=== PATIENT | female | born 1940 | race Caucasian/White ===

== ENCOUNTER 2022-01-15 17:00 | Outpatient (CLI) | payer MEDICARE, OTHER, SELFPAY ==
[2022-01-15 10:32] LABS: Glucose* 99 mg/dL (60-115)
== END 2022-01-15 17:01 | disposition home or self-care (01) ==
PROVIDERS: PCP Internal Medicine; Visit Provider Internal Medicine
DX: E03.9 Hypothyroidism, unspecified (principal); Z13.1 Encounter for screening for diabetes mellitus
CPT/HCPCS: 82947; 84443

== ENCOUNTER 2022-05-11 10:04 | Outpatient (CLI) | payer MEDICARE, OTHER, SELFPAY ==
--- NOTE | 2022-05-11 10:15 | CRLHL7_ITS ---
For Patients: As a result of the Century Cures Act, medical imaging exams and procedure reports are released immediately into your electronic medical record. You may view this report before your referring provider. If you have questions, please contact your health care provider. BILATERAL SCREENING MAMMOGRAM WITH COMPUTER-AIDED DETECTION TECHNIQUE: CC and MLO views were obtained. These mammographic images have been obtained using full-field digital technique. These mammographic images were interpreted with the benefit of computer-aided detection. COMPARISON FILM: 03/03/21, 10/24/17, 10/15/16. FINDINGS: The breasts are heterogeneously dense, which may obscure small masses IMPRESSION: There is no radiographic evidence for malignancy. ASSESSMENT: BI-RADS Category 1: Negative RECOMMENDATION: Routine screening mammogram in 1 year. A lay language report of this examination will be provided to the patient. Arnie Nguyen M.D. Diagnostic Radiologist [email or web address] VON/antonia Transcribed: 2:40 p.kiki knight/Dictated by: Arnie Nguyen MD @ 05/11/2022 10:57:00 AM (Electronically Signed)
== END 2022-05-11 10:05 | disposition home or self-care (01) ==
LOC: MAMMO 10:05
PROVIDERS: PCP Internal Medicine; Visit Provider Internal Medicine
DX: Z12.31 Encounter for screening mammogram for malignant neoplasm of breast (principal); R92.2 Inconclusive mammogram
CPT/HCPCS: 77063; 77067

== ENCOUNTER 2023-05-17 11:01 | Outpatient (CLI) | payer MEDICARE, OTHER, SELFPAY ==
--- OUTSIDE RECORDS SUMMARY | 2023-05-17 11:10 | XMS_ITS | Clinical Summary ---
Author Name Unknown Organization [facility] Address [place], [place] [address] Care Team Providers Care Service Engine Repairer Name Role Phone Sharon Kendrick MD Primary Care Provider [phone] Erendira Feldman AuD Unavailable [phone] Allergies No known active allergies Active Problems Problem Noted Date Diagnosed Date Sensorineural hearing loss, bilateral 10/10/2013 Social History Tobacco Use Types Packs/Day Years Used Date Smoking Tobacco: Never Assessed Sex and Gender Information Value Date Recorded Sex Assigned at Not on file Gender Identity Not on file Sexual Orientation Not on file Last Filed Vital Signs Vital Sign Reading Time Taken Comments Blood Pressure 113/73 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 Pulse 72 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 Temperature - - Respiratory Rate - - Oxygen Saturation - - Inhaled Oxygen Concentration - - Weight - - Height - - Body Mass Index - - Plan of Treatment Health Maintenance Due Date Last Done Comments COVID-19 vaccine series (#1) 04/19/1942 Tdap 1952 Depression screening for age 12+ 1953 BMI (ht and wt on same day) for age 18+ 10/18/1959 Tetanus booster 1961 Zoster (shingles) series for age 50+ (1 of 2) 10/17/18 92 DEXA/DXA scan for age 65+ 2006 Medicare Wellness for age 65+ 2006 Pneumococcal series for age 65+ (1 of 1 - PCV) 007 Influenza for age 65+ 11/26/2022 Care Teams Service Engine Repairer Relationship Specialty Start Date End Date Sharon Kendrick MD [address] [place] [address] PCP - General Internal Medicine 04/25/12 Erendira Feldman AuD [address] [place] [address] Audiology 04/25/12
== END 2023-05-17 11:02 | disposition home or self-care (01) ==
PROVIDERS: PCP Internal Medicine; Visit Provider Internal Medicine
DX: E03.9 Hypothyroidism, unspecified (principal); M85.80 Other specified disorders of bone density and structure, unspecified site; R53.81 Other malaise; Z13.228 Encounter for screening for other metabolic disorders; Z13.21 Encounter for screening for nutritional disorder
CPT/HCPCS: 80053; 82306; 82607; 83735; 84443

== ENCOUNTER 2023-08-08 11:15 | Outpatient (CLI) | payer MEDICARE, OTHER, SELFPAY ==
--- OUTSIDE RECORDS SUMMARY | 2023-08-08 11:17 | XMS_ITS | Clinical Summary ---
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 Pulse 72 04/24/2013 2:11 PM SHOWER ROOM ATTENDANT Temperature - - Respiratory Rate - - Oxygen Saturation - - Inhaled Oxygen Concentration - - Weight - - Height - - Body Mass Index - - Plan of Treatment Health Maintenance Due Date Last Done Comments Tdap 1952 Depression screening for age 12+ 1953 BMI (ht and wt on same day) for age 18+ 10/18/1959 Tetanus booster 1961 Zoster (shingles) series for age 50+ (1 of 2) 10/17/18 92 DEXA/DXA scan for age 65+ 2006 Medicare Wellness for age 65+ 2006 Pneumococcal series for age 65+ (1 of 1 - PCV) 007 COVID-19 vaccine series ( - 2022-24 season) 3 Influenza for age 65+ 11/27/2023 Care Teams Hot Dip Galvanizer Relationship Specialty Start Date End Date Sharon Kendrick MD [address] [place] [address] PCP - General Internal Medicine 04/25/12 Erendira Feldman AuD [address] [place] [address] Audiology 04/25/12
--- NOTE | 2023-08-08 11:30 | MM_ITS ---
Patient: ESTER KABA Facility:?[facility] Patient ID:?[id number] Site Patient ID:?[id number] Site :?[id number] Study:?XRay-Breast Bilateral 3D W/CAD-08/08/2023 11:37:39 AM Ordering Physician:Sharon Stoner Final Report: BILATERAL SCREENING MAMMOGRAM WITH COMPUTER-AIDED DETECTION AND TOMOSYNTHESIS TECHNIQUE: CC and MLO views were obtained. These mammographic images have been obtained using full-field digital technique. These mammographic images were interpreted with the benefit of computer-aided detection. Breast tomosynthesis was used in this interpretation. COMPARISON FILM: 05/11/22, 03/03/21, 10/24/17. FINDINGS: The breasts are heterogeneously dense, which may obscure small masses. IMPRESSION: There is no radiographic evidence for malignancy. ASSESSMENT: BI-RADS Category 1: Negative RECOMMENDATION: Routine screening mammogram in 1 year. A lay language report of this examination will be provided to the patient. JOSHUA DOLL M.D. Diagnostic Radiologist [email or web address] VON/mercy D& Transcribed: 1:[address]/Dictated by: Joshua Doll MD @ 08/09/2023 11:37:00 AM Signed by:Gillian Doll MD @08/09/2023 1:27:26 PM (Electronic Signature)
== END 2023-08-08 11:16 | disposition home or self-care (01) ==
LOC: MAMMO 11:16
PROVIDERS: PCP Internal Medicine; Visit Provider Internal Medicine
DX: Z12.31 Encounter for screening mammogram for malignant neoplasm of breast (principal); R92.2 Inconclusive mammogram
CPT/HCPCS: 77063; 77067

== ENCOUNTER 2023-10-07 09:00 | Outpatient (RCR) | payer MEDICARE, OTHER, SELFPAY ==
--- NOTE | 2023-06-29 09:35 | PT.OPEX ---
PT [facility] Outpatient Eval PT [facility] Outpatient Eval Start: 06/14/23 10:55 Freq: Status: Active Protocol: Document 06/29/23 07:59 MARY JO (Rec: 06/29/23 08:02 MARY JO [id number]) E-signed By Nicole Hall PT Physical Therapy Outpatient Evaluation Insurance Information Recert Due Date 09/27/23 Insurance Name Medicare B Insurance Information/Comments [facility] Diagnosis Urinary incontinence LE weakness Other symptoms/signs involving musculoskeletal system Treating Diagnosis Lack of muscle coordination weakness Referring MD Dr Aroldo Doyle presents with diagnosis of symptoms of UI and LE weakness. Pt is currently in the process of moving from her house into an apartment. Her main concern today is her UI symptoms vs her LE weakness. Her UI symptoms started bout 4 -5 years ago with some mild leakage when she coughed. Pt did have persistent cough at that time that since has been treated and has improved. She continues to have issues with UI that had gradually worsened over the years. Currently her leaking will occur multiple times a day. The leaking is usually associated with coughing/ sneezing and lifting. Usually the amount leaked in a spurt, but has had an episode, over the past year, of a large leak . Her bowel function overall is fair. Pt is not currently sexual active and is content with her current status. Goal for therapy includes ability to control her bladder better. Date of Last Physician Visit 05/17/23 Current Work Status Retired Precautions Treatment Precautions/Contraindications depression HTN skin CA hypothyroidism osteopenia persistent cough - improving. Is on an inhaler Surgical hx: L ankle ORIF B oophorectomy approx 30 yrs ago Assessment Assessment/Impression 82 yo client presents with concerns due to urinary incontinence. With further evaluation of pt's status, pt at times does have a slow urinary stream and has trouble with completely emptying her bladder. At times, will need to double void to feel completely empties. She typically will urinate rough every hour to try to help reduce episodes of leaking. Does frequently toilet just in case, if leaving the house or when returning home, to reduce risk of UI. Someday her frequency can be less and she is able to wait closer to 2 hours between voiding. Pt drinks an appropriate amount of water (48 oz), and up to 2 glasses of herbal tea in a day . Will also drink 16-24 oz of caffeinated tea/day. Did not have time to complete assessment of her PFM at this time. Will complete the assessment at her next session . Pt is appropriate for further skilled PT services including use of therapeutic exercise, therapeutic activities, neuromuscular re- ed, manual therapy, and self cares for symptom reduction. Plan of Care Rehabilitation Potential Good Physical Therapy Goals Short term goals to be achieved in 4 weeks 1. Able to state 4 of 4 urge suppression/bladder retraining strategies 2. Able to report voiding intervals of 1X every 2-3 hours, 50% of the time. 3. Pt will demonstrate use of functional PFM contraction/ precontraction to reduce UI during coughing, sneezing, and with lifting 4. 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 1. Independent with self-care program to allow for reduction in her UI symptoms 2. Will report an 80% reduction in her UI symptoms as seen with ability to stay dry 5 out of 7 days. 3. Pt will report no leaking with coughing, sneezing, 3 out of 4 trials. 4. Pt will be able to demonstrate proper mechanics with lifting, including ability to manage IAP, to reduce DANIEL symptoms. 5. Pt able to maintain a 2-3 hour voiding schedule 75% of the time or greater for improvement in her bladder function. Coordination/Communication With Referral Source Treatment Plan/Direct Interventions Joint Mobilization,Manual Therapy,Neuromuscular Re-ed, Self-Care/Home Management, Therapeutic Activities, Therapeutic Exercises Frequency/Duration 1 time a week for up to 12 viists Patient Will Be Discharged From Therapy Completion of LTG(s),Skills Plateau,Independent w/HEP, Independently Progressing Evaluation Billing Untimed Code Treatment Minutes 35 Complexity Moderate Certification Information Initial Certification Date 06/29/23 Ending Certification Date 09/27/23 Provider Signature Shows Agreement With POC & Medical Necessity Physician Signature & Date Requested Please Sign/Date Here Physician Comment/Change : Physician NPI Number #
--- NOTE | 2023-10-07 09:51 | PT.OPDNX ---
PT [facility] Outpatient Daily Note PT [facility] Outpatient Daily Note Start: 06/14/23 10:55 Freq: Status: Active Protocol: Document 10/07/23 09:06 MARY JO (Rec: 10/07/23 09:50 MARY JO [id number]) E-signed By Nicole Hall, PT PT OP Daily Progress Note Visit Information Note Type Daily Note Visit Number 6 Insurance Information Recert Due Date 01/05/24 Insurance Name Medicare B Insurance Information/Comments [place] Medical Diagnosis Urinary incontinence LE weakness Other symptoms/signs involving musculoskeletal system Treating Diagnosis Lack of muscle coordination weakness Referring MD Dr Kendrick Subjective Subjective Pt reports she is doing really well. Happy with her progress. Had a stressful week - spouse ended up hospitalized for a staph infection. Pt reports only having 1 episode of leaking with a sneeze in the last week . I don't wear of pads anymore. Is able to wait 2-3 hours between voiding. Only concern is of a double void first thing in the am - they are about 10 mins apart. Precautions Treatment Precautions/Contraindications depression HTN skin CA hypothyroidism osteopenia persistent cough - improving. Is on an inhaler Surgical hx: L ankle ORIF B oophorectomy approx 30 yrs ago Objective Patient Instructed in Risks/Benefits Yes Therapeutic Exercise Therapeutic Exercise Minutes (minutes) 20 Therapeutic Exercise: To Restore Did review current HEP with pt Functional Status and review of rationale for exs. Did modify her PF PT to a seated position to aid in improving her compliance. Pt did initially need cueing for proper firing of lower abdominals. Review of Kegels -reps, positions, proper contractions. Self Care Management Training Self-Care Activity Minutes (minutes) 15 Self Care Management Training Again review of cough/sneeze and trying to add in a pre contraction to reduce DANIEL symptoms. Also worked on ways to reduce her double Void in the am - will try to take some extra time relaxing on the toilet prior to standing/wiping. Will change position - lean forward, stand up, etc to see if any more urine comes out. Also instructed her to make sure there is not a trigger that produces her 2nd urge in the am (ie brushing teeth, running water) to avoid any urge UI symptoms. Treatment Minutes Timed Code Treatment Minutes 35 Total Treatment Time 35 Billing Units Self-Care Activity Units 1 Therapeutic Exercise Units 1 Assessment/Impression Assessment/Impression Pt overall is doing really well with symptoms despite her stressful week. Has bene going without pads and only had 1 episode of leaking with a sneeze. Has been doing her Kegels as instructed but is struggling with her stretching and core. Did review with pt importance of her HEP and did modify her HEP to help improve compliance. Pt should be able to self manage symptoms with her current HEP. She has made good progress toward her goals. Will place her chart on hold. Plan of Care Physical Therapy Goals Short term goals to be achieved in 4 weeks 1. Able to state 4 of 4 urge suppression/bladder retraining strategies MET 2. Able to report voiding intervals of 1X every 2-3 hours, 50% of the time. MET 3. Pt will demonstrate use of functional PFM contraction/ precontraction to reduce UI during coughing, sneezing, and with lifting MET 4. Will demonstrate an increase in PFM endurance to 8 sec holds X 10 reps, or greater, for ability to reduce UI symptoms during the day MET senior care goals to be achieved in 12 weeks. 1. Independent with self-care program to allow for reduction in her UI symptoms MET 2. Will report an 80% reduction in her UI symptoms as seen with ability to stay dry 5 out of 7 days. MET 3. Pt will report no leaking with coughing, sneezing, 3 out of 4 trials. MET 4. Pt will be able to demonstrate proper mechanics with lifting, including ability to manage IAP, to reduce DANIEL symptoms. MET 5. Pt able to maintain a 2-3 hour voiding schedule 75% of the time or greater for improvement in her bladder function. MET Daily Plan of Care Change POC; See Comments, Discharge Daily Plan of Care Comments on hold If pt fails to contact PT in 6 weeks, her chart will be DC/ Recertification Information Initial Certification Date 06/29/23 Recertification Start Date 10/07/23 Recertification Due Date 01/05/24 Reasons to Continue Skilled Therapy Pt returned to PT today with concerns over double voiding in am as well as maintenance now that rehab is ending. Pt should be able to self manage with her HEP and continue to improve. Plan is to place her chart on hold. She will call if further PT is needed. Would only continue with 1-3 more sessions if pt has issues of UI or concerns. Rehabilitation Potential Good Continued Plan of Care and Interventions Will continue with 1-3 more session if needed to further solidify her HEP and work on reducing urge type symptoms if present. If she returns, will use MT, ther exs, self cares and NMRE for symptom reduction. Provider Signature Shows Agreement With POC & Medical Necessity Physician Comment/Change Comment or Changes Physician NPI Number #
== END 2024-02-04 23:59 | disposition home or self-care (01) ==
PROVIDERS: PCP Internal Medicine; Visit Provider Internal Medicine
DX: R32 Unspecified urinary incontinence (principal); R29.898 Other symptoms and signs involving the musculoskeletal system; R27.8 Other lack of coordination; R53.1 Weakness; Z51.89 Encounter for other specified aftercare
CPT/HCPCS: 97110; 97140; 97162; 97535

== ENCOUNTER 2024-02-26 15:47 | Outpatient (CLI) | payer MEDICARE, OTHER, SELFPAY ==
--- OUTSIDE RECORDS SUMMARY | 2024-02-27 03:12 | XMS_ITS | Clinical Summary ---
Author Organization [facility] Address [place], [place] [address] Care Team Providers Care Acid Extractor Name Role Phone Sharon Kendrick MD Primary Care Provider [phone] Erendira Everett Unavailable [phone] Allergies No known active allergies Medications [...] Type Department Care Team Description 12/29/2023 Telephone [facility] [place] [address] [place] [phone] Radhames Orr MD Refill Request 12/26/2023 Telephone [facility] [place] [address] [phone] Radhames Orr MD Refill Request 12/14/2023 Telephone [facility] [place] [address] [place] [phone] Radhames Orr MD Medication Management (Leny Alicia [...] st Contact Info) Description 04/03/2024 9:40 AM MANAGING MEMBER Office Visit [facility] [place] [address] [phone] Radhames Orr MD [address] [place] [id number] Health Maintenance Due Date Last Done Comments [...] for age 18+ 10/13/2024 10/14/2023 Care Teams Acid Extractor Relationship Specialty Start Date End Date Sharon Kendrick MD [address] [place] [address] PCP - General Internal Medicine 04/25/12 Erendira Everett AuD [address] [place] [address] Audiology 04/25/12
== END 2024-02-26 15:48 | disposition home or self-care (01) ==
LOC: AMB 02-27 03:10
PROVIDERS: PCP Internal Medicine; Visit Provider Family Medicine
DX: S79.911A Unspecified injury of right hip, initial encounter (principal); W18.39XA Other fall on same level, initial encounter; Y93.K1 Activity, walking an animal; Y92.480 Sidewalk as the place of occurrence of the external cause
CPT/HCPCS: A0425; A0427

== ENCOUNTER 2024-02-26 16:14 | Inpatient (IN) | payer MEDICARE, OTHER, SELFPAY ==
[2024-02-26] VITALS (18 sets, daily range): BP systolic 156–183; BP diastolic 64–148; PULSE 70–82; RESP 14–18; TEMP 36.1–36.7; O2SAT 88–100; BMI 24.9; BMI 23.2
--- NOTE | 2024-02-26 16:44 | CRLHL7_ITS ---
For Patients: As a result of the Century Cures Act, medical imaging exams and procedure reports are released immediately into your electronic medical record. You may view this report before your referring provider. If you have questions, please contact your health care provider. Indication: Fall with left hip trauma Technique: CT pelvis: Noncontrast CT through the pelvis with multiplanar reformats CT left femur: Noncontrast CT of the left femur with multiplanar reformats Comparison: None Findings: Pelvis: Visualized bowel: No acute abnormality appreciated. Vascular: No acute abnormality appreciated. Calcified atherosclerosis. Lymph nodes: No acute abnormality appreciated. : No acute abnormality appreciated. Soft tissues: No other acute abnormality appreciated. Bones: No additional fracture. No lytic or blastic lesion. Left femur: Bones: Comminuted left intertrochanteric femoral fracture. Joints: Blkb-yp-erovugrl osteoarthritic changes. Alignment is maintained. Degenerative changes of the knee. Soft tissues: Mild soft tissue edema in the left hip. Impression: Comminuted left intertrochanteric femoral fracture, no other acute abnormality appreciated. Please note that all CT scans at this facility use dose modulation, iterative reconstruction, and/or weight-based dosing when appropriate to reduce radiation dose to as low as reasonably achievable. Dictated by Tonny Hagan MD @ 02/26/2024 6:16:14 PM (Electronically Signed)
--- NOTE | 2024-02-26 16:45 | CRLHL7_ITS ---
For Patients: As a result of the Century Cures Act, medical imaging exams and procedure reports are released immediately into your electronic medical record. You may view this report before your referring provider. If you have questions, please contact your health care provider. Indication: Fell and hit head Technique: Noncontrast CT through the head with multiplanar reformats Comparison: None Findings: Brain: No acute hemorrhage. No acute infarct. No significant mass effect or midline shift. No gross evidence of a mass lesion or cerebral edema. Severe chronic microvascular ischemic disease. Mild global parenchymal volume loss. Ventricles: No acute abnormality appreciated. Orbits, sinuses, mastoids: No acute abnormality appreciated. Calvarium and soft tissues: No acute abnormality appreciated. Impression: No acute abnormality appreciated. Please note that all CT scans at this facility use dose modulation, iterative reconstruction, and/or weight-based dosing when appropriate to reduce radiation dose to as low as reasonably achievable. Dictated by Tonny Hagan MD @ 02/26/2024 6:05:46 PM (Electronically Signed)
--- NOTE | 2024-02-26 16:46 | CRLHL7_ITS ---
For Patients: As a result of the Century Cures Act, medical imaging exams and procedure reports are released immediately into your electronic medical record. You may view this report before your referring provider. If you have questions, please contact your health care provider. Indication: Fall with head trauma Technique: Noncontrast CT through the cervical spine with multiplanar reformats Comparison: None Findings: Alignment: Nonspecific straightening of the normal lordotic curvature. Slight rightward lateral listing, may be positional. No acute malalignment appreciated. Bones: No acute fracture. No lytic or blastic lesion. Cervical levels: No acute abnormality appreciated. Mild degenerative changes. Soft tissues: No acute abnormality appreciated. Impression: No acute abnormality appreciated. Please note that all CT scans at this facility use dose modulation, iterative reconstruction, and/or weight-based dosing when appropriate to reduce radiation dose to as low as reasonably achievable. Dictated by Tonny Hagan MD @ 02/26/2024 6:08:59 PM (Electronically Signed)
--- OUTSIDE RECORDS SUMMARY | 2024-02-26 16:53 | XMS_ITS | Clinical Summary ---
Author Organization [facility] Address [place], [place] [address] Care Team Providers Care Tack Coverer Name Role Phone Sharon Kendrick MD Primary Care Provider [phone] Erendira Everett Unavailable [phone] Allergies No known active allergies Medications Medication Sig Dispensed Refills Start Date End Date Status citalopram (CELEXA) 20 mg tablet Take 20 mg by mouth once daily. 08/02/2023 Active levothyroxine (SYNTHROID) 50 mcg tablet Take 50 mcg by mouth once daily. 08/02/2023 Active trimethoprim-polymyxin b (POLYTRIM) ophthalmic solution 06/21/2023 Activ e propranoloL (INDERAL) 10 mg tablet TAKE 1 TABLET BY MOUTH TWICE DAILY FOR ANXIETY 06/09/2023 Active fluticasone furoate-vilanteroL (Breo Ellipta) 100-25 mcg/dose inhalation powderIndications:Asth ma, unspecified asthma severity, unspecified whether complicated, unspecified whether persistent Inhale 1 Puff by mouth once daily. 60 Each 5 12/29/2023 Active Active Problems Problem Noted Date Diagnosed Date Sensorineural hearing loss, bilateral 10/10/2013 Encounters Date Type Department Care Team Description 12/29/2023 Telephone [facility] [place] [address] [place] [phone] Radhames Orr MD Refill Request 12/26/2023 Telephone [facility] [place] [address] [place] [phone] Radhames Orr MD Refill Request 12/14/2023 Telephone [facility] [place] [address] [place] [phone] Radhames Orr MD Medication Management (Leny Alicia ) from Last 3 Months Social History Tobacco Use Types Packs/Day Years Used Date Smoking Tobacco: Former Cigarettes 1 9 S tarted: 1962 Smokeless Tobacco: Never Tobacco Cessation:Counseling Given: Not Answered Alcohol Use Standard Drinks/Week Comments Yes 1 (1 standard drink = 0.6 oz pur e alcohol) Social Connections Answer Date Recorded Frequency of Communication with Friends and Fami ly Not on file 10/14/2023 Sex and Gender Information Value Date Recorded Sex Assigned at Not on file Gender Identity Not on file Sexual Orientation Not on file Obstetrics History Last Filed Vital Signs Vital Sign Reading Time Taken Comments Blood Pressure 126/72 10/14/2023 10:31 AM CDT Pulse 83 10/14/2023 10:31 AM CDT Temperature - - Respiratory Rate 17 10/14/2023 10:31 AM CDT Oxygen Saturation 96% 10/14/2023 10:31 AM CDT Inhaled Oxygen Concentration - - Weight 65 kg (143 lb 6.4 oz) 10/14/2023 10:31 AM CDT Height 162.6 cm (5' 4) 10/14/2023 10:31 AM CDT Body Mass Index 24.61 10/14/2023 10:31 AM CDT Plan of Treatment Upcoming Encounters Date Type Department Care Team (Late st Contact Info) Description 04/03/2024 9:40 AM INTERNATIONAL TAX MANAGER Office Visit [facility] [place] [address] [place] [phone] Radhames Orr MD [address] [place] [address] Health Maintenance Due Date Last Done Comments Tdap 1952 Depression screening for age 12+ 1953 Tetanus booster 1961 Zoster (shingles) series for age 50+ (1 of 2) 10/18/1991 DEXA/DXA scan for age 65+ 2006 Medicare Wellness for age 65+ 2006 Pneumococcal series for age 65+ (1 of 1 - PCV) 2006 RSV vaccine for adults or (1 - 1-dose 75+ series) 2016 COVID-19 vaccine series ( season) 2023 12/22/2022, 01/13/2021, 05/27/2020, Additional history exists Influenza for age 65+ 11/27/2023 BMI (ht and wt on same day) for age 18+ 10/13/2024 10/14/2023 Care Teams Tack Coverer Relationship Specialty Start Date End Date Sharon Kendrick MD [address] [place] [address] PCP - General Internal Medicine 04/25/12 Erendira Everett AuD [address] [place] [address] Audiology 04/25/12
[2024-02-26] MEDS: MORPHINE 4 MG/ML INJ IVP (16:54)
--- NOTE | 2024-02-26 17:23 | ED_ITS ---
HPI - General Adult General Date Seen: 02/26/24 Chief complaint: Extremity Pain/Injury, Lower Stated complaint: fall/hip pain Time Seen by Provider: 02/26/24 16:27 Source: patient and EMS Mode of arrival: EMS Limitations: no limitations History of Present Illness HPI narrative: Patient is an 83-year-old female presenting to the emergency department for left hip and thigh pain. She states her dog pulled her causing her fall and landing on the left hip. She also states she hit her head but did not lose consciousness. Denies any headache or neck pain at this time. Is not any blood thinners. Does have pain with moving the left leg. EMS states vital signs were stable and they gave her fentanyl for pain. She states the fentanyl helped some but she still in quite a bit of pain to the left hip. No other injuries noted. Denies any numbness. Related Data Home Medications ?Medication ?Instructions ?Recorded ?Confirmed calcium 315 mg (as 2 tab PO DAILY 01/18/22 06/21/23 citrate)-vitamin D3 6.25 mcg (250 unit) tablet fluticasone furoate 200 1 ea inhalation DAILY 05/17/23 06/21/23 mcg-vilanterol 25 mcg/dose inhalation powder (Breo Ellipta) vit C 250 mg-vit E 90 mg-zinc 40 1 tab PO QDAY 05/17/23 06/21/23 mg-copper 1 [id number]-[id number] capsule (PreserVision AREDS-2) Previous Rx's ?Medication ?Instructions ?Recorded levothyroxine 50 mcg tablet 50 mcg PO QDAY #90 tabs 08/02/23 citalopram 20 mg tablet 20 mg PO QDAY #90 tabs 11/01/23 Allergies Allergy/AdvReac Type Severity Reaction Status Date / Time No Known Allergies Allergy Unknown Verified 06/21/23 09:52 Review of Systems Narrative: Pertinent systems reviewed and were negative unless stated in HPI PFSH PFSH Surgical History (Updated 01/12/24 @ 14:13 by Sharon Kendrick MD) History of squamous cell carcinoma excision ?Z98.890 - Other specified postprocedural states (ICD-10) ?Z85.9 - Personal history of malignant neoplasm, unspecified (ICD-10) History of basal cell carcinoma of skin ?Z85.828 - Personal history of other malignant neoplasm of skin (ICD-10) History of fracture of ankle ?Z87.81 - Personal history of (healed) traumatic fracture (ICD-10) History of oophorectomy (02/23/10) Social History (Updated 05/17/23 @ 15:51 by Thuy Guerra ~ [facility]) What is your current living situation?: I presently have a place to live Problems where you live: no known problems In the past 12 months, utilities in danger of being shut off: no In the past 12 mos, have been you worried that your food would run out before you had money to buy more?: never true In the past 12 mos, the food you bought just didn't last and you didn't have money to buy more?: never true Smoking Status: Former smoker How often does anyone, including family, friends and others, physically hurt you : never How often does anyone, including family, friends and others, insult or talk down to you: never How often does anyone, including family, friends and others, threaten you with harm: never How often does anyone, including family, friends and others, scream or curse at you: never Exam Narrative: Exam Narrative: Const: Well-nourished, Well-developed, in mild distress Eyes: PERRL, no conjunctival injection, and symmetrical lids HENT: Atraumatic external nose and ears. Moist mucous membranes. Neck: Symmetric, trachea midline, No thyromegaly. MSK:Extremities w/o deformity, decreased range of motion is left hip secondary to pain. Tenderness noted to left proximal lateral thigh. No tenderness to Lew. No tenderness noted to cervical spine midline Skin: Warm, Dry. No rashes or lesions. Neuro: Normal Muscle tone, No focal neurological deficits. Psych: Awake, Alert, & Oriented x3. Appropriate mood and affect. Const: Vital Signs, click to edit/add: Vital Signs - 24 hr 02/26/24 16:22 02/26/24 16:22 02/26/24 16:23 Temperature 97.0 F L Pulse Rate 80 82 Pulse Rate [Pulse Oximeter] 81 Respiratory Rate 18 Blood Pressure 183/148 H Blood Pressure [Ri ght Upper Arm] 183/148 H Pulse Oximetry 97 96 95 Oxygen Delivery Me thod Room Air Oxygen Flow Rate 02/26/24 16:30 02/26/24 16:45 02/26/24 17:04 Temperature Pulse Rate 81 76 76 Pulse Rate [Pulse Oximeter] Respiratory Rate Blood Pressure Blood Pressure [Ri ght Upper Arm] Pulse Oximetry 88 97 92 Oxygen Delivery Me thod Oxygen Flow Rate 02/26/24 17:15 02/26/24 17:47 02/26/24 17:48 Temperature Pulse Rate 78 75 74 Pulse Rate [Pulse Oximeter] Respiratory Rate Blood Pressure 177/84 H Blood Pressure [Ri ght Upper Arm] Pulse Oximetry 94 98 90 Oxygen Delivery Me thod Oxygen Flow Rate 02/26/24 17:49 02/26/24 17:54 02/26/24 18:00 Temperature Pulse Rate 78 70 Pulse Rate [Pulse Oximeter] Respiratory Rate 14 Blood Pressure Blood Pressure [Ri ght Upper Arm] Pulse Oximetry 88 96 94 Oxygen Delivery Me thod Nasal Cannula Oxygen Flow Rate 1.5 02/26/24 18:15 Temperature Pulse Rate 74 Pulse Rate [Pulse Oximeter] Respiratory Rate 16 Blood Pressure Blood Pressure [Ri ght Upper Arm] Pulse Oximetry 100 Oxygen Delivery Me thod Oxygen Flow Rate Course Vital Signs Vital signs: Initial Vital Signs Temperature 97.0 F L 02/26/24 16:22 Temperature Source Temporal Artery Scan 02/26/24 16:22 Pulse Rate 80 02/26/24 16:22 Respiratory Rate 18 02/26/24 16:22 Blood Pressure 183/148 H 02/26/24 16:22 Blood Pressure Mean 159 H 02/26/24 16:22 Blood Pressure Position Sitting 02/26/24 16:22 Pulse Oximetry 97 02/26/24 16:22 Oxygen Delivery Method Room Air 02/26/24 16:22 Vital Signs Temperature 97.0 F L 02/26/24 16:22 Pulse Rate 80 02/26/24 16:22 Respiratory Rate 18 02/26/24 16:22 Blood Pressure 183/148 H 02/26/24 16:22 Pulse Oximetry 97 02/26/24 16:22 Oxygen Delivery Method Room Air 02/26/24 16:22 Temperature 97.0 F L 02/26/24 16:22 Pulse Rate 74 02/26/24 18:15 Respiratory Rate 16 02/26/24 18:15 Blood Pressure 177/84 H 02/26/24 17:48 Pulse Oximetry 100 02/26/24 18:15 Oxygen Delivery Method Nasal Cannula 02/26/24 17:54 Oxygen Flow Rate 1.5 02/26/24 17:54 Medications Administered Medications: Discontinued Medications Generic Name Dose Route Start Last Admin Trade Name Andriy PRN Reason Stop Dose Admin Morphine Sulfate 4 mg 02/26/24 16:44 02/26/24 16:54 Morphine 4 Mg/Ml Inj IVP 02/26/24 16:45 4 mg ONCE ONE Administration Ondansetron HCl 4 mg 02/26/24 17:21 02/26/24 17:26 Ondansetron 2 Mg/Ml Inj IVP 02/26/24 17:22 4 mg ONCE ONE Administration Medical Decision Making MDM Narrative Medical decision making narrative: Patient is an 83-year-old female presenting to the emergency department after a fall. Brought in by EMS. Since she did hit his head I will do a CT scan of her head and cervical spine. While we were doing this also scan her pelvis to look for any hip or femur fractures. Morphine given for pain and Zofran for nausea. CT scan head and neck reviewed myself the radiologist showed no concerning abnormalities. CT scan of the pelvis and hip show a comminuted intrertrochanteric fracture. Will do basic labs and an EKG. Orthopedics is aware. They did recommend doing a femur x-ray. This will be ordered. Hospitalist accepted for admission. Lab Data Labs: Lab Results 02/26/24 Range/Units 18:35 WBC 11.32 H (4.50-11.00) K/uL RBC 4.58 (4.00-5.20) m/uL Hgb 13.1 (12.0-16.0) gm/dL Hct 40.9 (33.0-51.0) % MCV 89 (80-100) fL MCH 29 (26-34) pg MCHC 32 (32-36) gm/dL RDW Coeff of Jenaro 13.9 (11.5-15.5) % Plt Count 288 (140-440) K/uL Neut % (Auto) 89.1 H (42.0-72.0) % Lymph % (Auto) 6.8 L (20-44) % Wolfe % (Auto) 3.4 (0.0-11.0) % Eos % (Auto) 0.2 (0.0-7.0) % Baso % (Auto) 0.3 (0.0-3.0) % Neut # (Auto) 10.10 H (1.7-7.0) K/uL Lymph # (Auto) 0.80 L (0.90-2.90) K/uL Wolfe # (Auto) 0.40 (0.00-0.90) K/UL Eos # (Auto) 0.00 (0.00-0.50) K/uL Baso # (Auto) 0.00 (0.00-0.30) K/uL Abs Immat Gran (auto) 0.00 (0.00-0.30) K/uL Imm/Tot Granulo (auto) 0.2 % Imaging Data CT scan head: Attestation: I have reviewed the pertinent imaging results. Radiologist's impression: No acute abnormality appreciated. Please note that all CT scans at this facility use dose modulation, iterative reconstruction, and/or weight-based dosing when appropriate to reduce radiation dose to as low as reasonably achievable. Dictated by Tonny Hagan MD @ 02/26/2024 6:05:[address] scan cervical spine: Attestation: I have reviewed the pertinent imaging results. Radiologist's impression: No acute abnormality appreciated. Please note that all CT scans at this facility use dose modulation, iterative reconstruction, and/or weight-based dosing when appropriate to reduce radiation dose to as low as reasonably achievable. Dictated by Tonny Hagan MD @ 02/26/2024 6:08:[address] scan pelvis: Attestation: I have reviewed the pertinent imaging results. Radiologist's impression: Comminuted left intertrochanteric femoral fracture, no other acute abnormality appreciated. Please note that all CT scans at this facility use dose modulation, iterative reconstruction, and/or weight-based dosing when appropriate to reduce radiation dose to as low as reasonably achievable. Dictated by Tonny Hagan MD @ 02/26/2024 6:15:[address] scan femur: Attestation: I have reviewed the pertinent imaging results. Radiologist's impression: Comminuted left intertrochanteric femoral fracture, no other acute abnormality appreciated. Please note that all CT scans at this facility use dose modulation, iterative reconstruction, and/or weight-based dosing when appropriate to reduce radiation dose to as low as reasonably achievable. Dictated by Tonny Hagan MD @ 02/26/2024 6:16:14 PM ECG Data Attestation: I personally reviewed and interpreted this ECG as follows: Prior ECG tracings: not available for review Interpretation: Normal sinus rhythm with a rate of 71 beats per minute, normal intervals, normal axis, no ST or T-wave abnormalities. Discharge Plan Discharge Clinical Impression: Closed fracture of left hip Qualifiers: Encounter type: initial encounter Qualified Code(s): S72.002A - Fracture of unspecified part of neck of left femur, initial encounter for closed fracture Patient Disposition: Admitted As Observation Condition: Stable
[2024-02-26] MEDS: ONDANSETRON 2 MG/ML inj 4 MG IVP (17:26)
--- NOTE | 2024-02-26 18:37 | CRLHL7_ITS ---
For Patients: As a result of the Cures Act, medical imaging exams and procedure reports are released immediately into your electronic medical record. You may view this report before your referring provider. If you have questions, please contact your health care provider. Indication: Fall Technique: Right femur 5 views. Comparison: Same day left femur CT Findings: Bones: Alignment is normal. Acute comminuted left intertrochanteric femoral fracture, better evaluated on same-day CT Joint spaces: Mild left hip degenerative change. Moderate to severe joint space narrowing of the medial and lateral compartments of the knee. Soft tissues: Unremarkable. Impression: Acute comminuted left intertrochanteric femoral fracture, better evaluated on same-day CT Dictated by Krista Shukla MD @ 02/26/2024 7:47:55 PM (Electronically Signed)
[2024-02-26 18:41] LABS: Basophils Percent Auto 0.3 % (0.0-3.0); Eosinophils Percent Auto 0.2 % (0.0-7.0); Hematocrit 40.9 % (33.0-51.0); Hemoglobin* 13.1 gm/dL (12.0-16.0); Immature Granulocytes Pct Auto 0.2 %; Lymphocytes Percent Auto 6.8 % (20-44); Mean Corpuscular HGB Conc 32 gm/dL (32-36); Mean Corpuscular Hemoglobin 29 pg (26-34); Mean Corpuscular Volume 89 fL (80-100); Monocytes Percent Auto 3.4 % (0.0-11.0); Neutrophils Percent Auto 89.1 % (42.0-72.0); Platelet Count* 288 K/uL (140-440); RDW Coefficient of Variation % 13.9 % (11.5-15.5); Red Blood Count 4.58 m/uL (4.00-5.20); White Blood Count* 11.32 K/uL (4.50-11.00)
[2024-02-26 18:44] LABS: Slide Review Reflex No
[2024-02-26 18:55] LABS: Chloride* 101 mmol/L (96-114); Potassium* 4.2 mmol/L (3.6-5.1); Sodium* 133 mmol/L (135-149)
[2024-02-26 18:58] LABS: Anion Gap 5 mEq/L (7-15); Blood Urea Nitrogen* 14 mg/dL (7-30); Calcium* 8.8 mg/dL (8.4-10.6); Carbon Dioxide* 27 mmol/L (20-32); Creatinine* 0.5 mg/dL (0.5-1.5); Est. Creatinine Clearance* 37.45; Estimated Glomerular Filt Rate 94 ml/min; Glucose* 101 mg/dL (60-115)
--- NOTE | 2024-02-26 19:25 | P.IMHP_ITS ---
Hospitalist- H&P: HPI History of Present Illness Date Seen: 02/26/24 Chief complaint: fall/hip pain Narrative: ADMISSION HISTORY AND PHYSICAL - HOSPITALIST Chief Complaint: My dog tripped me, I hit my head and messed up my hip HPI: Patient is an vibrant 83-year-old female who sees Dr. Velasco in the clinic and has a hx of hypothyroidism, depression, urinary incontinence presenting to the emergency department for left hip and thigh pain. She states her dog pulled her causing her fall and landing on the left hip. She also states she hit her head but did not lose consciousness. Denies any headache or neck pain at this time. Is not any blood thinners. Does have pain with moving the left leg. EMS states vital signs were stable and they gave her fentanyl for pain. She states the fentanyl helped some but she still in quite a bit of pain to the left hip. No other injuries noted. Denies any numbness. ER COURSE: Films, including CT of head, C-spine, pelvis, femur Comminuted left intertrochanteric femoral fracture, no other acute abnormality appreciated. CODE STATUS: FULL CODE EMERGENCY CONTACT PLAN: Arnie Hendrickson Rel To Pat I've updated the PFSH, medications and allergies in the Expanse tabs. INVESTIGATIONS: LABS/MICRO/ECG/IMAGING White count is 11.3 Hemoglobin is 13.1 Platelet count 288 Sodium is just marginally low at 133. The rest of her electrolytes and renal function are within normal limits. Reviewed all imaging reports from the ER evaluation Reviewed Dr. Velasco's note from this year Pulmonary function test Reason for Study: (J45.30) Mild persistent asthma without complication (primary encounter diagnosis) Date of study: 10/14/2023 Testing Quality: Meets ATS criteria. Spirometry: Spirometry is within normal limits. FENO: FeNO is <25 which is normal. Radhames Orr MD REVIEW OF SYSTEMS: 12-point ROS completed with patient and negative unless otherwise stated in HPI or below. PHYSICAL EXAM: CONSTITUTIONAL: Conversive, good historian. A/O. Knows setting and context. VITAL SIGNS: see record. HEENT: Normocephalic, atraumatic. PERRL, EOMI, conjunctivae pink, no scleral icterus. Ears and nose externally normal. Pharynx normal. NECK: No JVD. No carotid bruit, no thyromegaly, no adenopathy. CHEST: Clear to auscultation bilaterally HEART: S1 and S2 normal. No harsh murmurs. MUSCULOSKELETAL: left hip is internally rotated. no edema. distal pulses present. sensation intact. NEURO: Cranial nerves intact. Grossly intact. No asymmetric findings. SKIN: No rashes, petechiae, concerning changes PSYCHIATRIC: Euthymic. ADMIT TO MEDSURG: FLOOR CARE DVT: Postoperative Xarelto, aspirin GI: PO intake Time spent: Today I spent 75 minutes seeing the patient, discussing the patient with ER staff, reviewing Expanse and EPIC notes/diagnostics, discussing the care plan with our care time that includes social work, PT/OT, pharmacy, RT, residential and documenting my impressions and plan in the medical record. ? [facility] Medical History (Updated 02/26/24 @ 20:22 by Capri Oakes MD) Subjective memory complaints (2015) ?R41.89 - Other symptoms and signs involving cognitive functions and awareness (ICD-10) Urinary incontinence ?R32 - Unspecified urinary incontinence (ICD-10) Intertrochanteric fracture of left femur ?S72.142A - Displaced intertrochanteric fracture of left femur, initial encounter for closed fracture (ICD-10) Elevated blood pressure reading without diagnosis of hypertension ?R03.0 - Elevated blood-pressure reading, without diagnosis of hypertension (ICD-10) Chronic cough ?R05.3 - Chronic cough (ICD-10) Major depressive disorder ?F32.9 - Major depressive disorder, single episode, unspecified (ICD-10) Osteopenia (02/23/10) ?M85.80 - Other specified disorders of bone density and structure, unspecified site (ICD-10) Hypothyroidism (09/22/11) ?E03.9 - Hypothyroidism, unspecified (ICD-10) History of skin cancer ?Z85.828 - Personal history of other malignant neoplasm of skin (ICD-10) Surgical History (Updated 01/12/24 @ 14:13 by Sharon Kendrick MD) History of squamous cell carcinoma excision ?Z98.890 - Other specified postprocedural states (ICD-10) ?Z85.9 - Personal history of malignant neoplasm, unspecified (ICD-10) History of basal cell carcinoma of skin ?Z85.828 - Personal history of other malignant neoplasm of skin (ICD-10) History of fracture of ankle ?Z87.81 - Personal history of (healed) traumatic fracture (ICD-10) History of oophorectomy (02/23/10) Social History (Updated 05/17/23 @ 15:51 by Thuy Guerra ~ [facility]) What is your current living situation?: I presently have a place to live Problems where you live: no known problems In the past 12 months, utilities in danger of being shut off: no In the past 12 mos, have been you worried that your food would run out before you had money to buy more?: never true In the past 12 mos, the food you bought just didn't last and you didn't have money to buy more?: never true Smoking Status: Former smoker How often does anyone, including family, friends and others, physically hurt you : never How often does anyone, including family, friends and others, insult or talk down to you: never How often does anyone, including family, friends and others, threaten you with harm: never How often does anyone, including family, friends and others, scream or curse at you: never Meds Home Medications and Allergies Home Medications ?Medication ?Instructions ?Recorded ?Confirmed ?Type calcium 315 mg (as 2 tab PO DAILY 01/18/22 06/21/23 History citrate)-vitamin D3 6.25 mcg (250 unit) tablet fluticasone furoate 200 1 ea inhalation DAILY 05/17/23 06/21/23 History mcg-vilanterol 25 mcg/dose inhalation powder (Breo Ellipta) vit C 250 mg-vit E 90 mg-zinc 40 1 tab PO QDAY 05/17/23 06/21/23 History mg-copper 1 pw-chdeqa-dtipty capsule (PreserVision AREDS-2) Allergies Allergy/AdvReac Type Severity Reaction Status Date / Time No Known Allergies Allergy Unknown Verified 06/21/23 09:52 Exam Const: Vital Signs, click to edit/add: Vital Signs - 24 hr 02/26/24 16:22 02/26/24 16:22 02/26/24 16:23 Temperature 97.0 F L Pulse Rate 80 82 Pulse Rate [Pulse Oximeter] 81 Respiratory Rate 18 Blood Pressure 183/148 H Blood Pressure [Ri ght Upper Arm] 183/148 H Pulse Oximetry 97 96 95 Oxygen Delivery Me thod Room Air Oxygen Flow Rate 02/26/24 16:30 02/26/24 16:45 02/26/24 17:04 Temperature Pulse Rate 81 76 76 Pulse Rate [Pulse Oximeter] Respiratory Rate Blood Pressure Blood Pressure [Ri ght Upper Arm] Pulse Oximetry 88 97 92 Oxygen Delivery Me thod Oxygen Flow Rate 02/26/24 17:15 02/26/24 17:47 02/26/24 17:48 Temperature Pulse Rate 78 75 74 Pulse Rate [Pulse Oximeter] Respiratory Rate Blood Pressure 177/84 H Blood Pressure [Ri ght Upper Arm] Pulse Oximetry 94 98 90 Oxygen Delivery Me thod Oxygen Flow Rate 02/26/24 17:49 02/26/24 17:54 02/26/24 18:00 Temperature Pulse Rate 78 70 Pulse Rate [Pulse Oximeter] Respiratory Rate 14 Blood Pressure Blood Pressure [Ri ght Upper Arm] Pulse Oximetry 88 96 94 Oxygen Delivery Me thod Nasal Cannula Oxygen Flow Rate 1.5 02/26/24 18:15 02/26/24 18:35 02/26/24 18:45 Temperature Pulse Rate 74 70 70 Pulse Rate [Pulse Oximeter] Respiratory Rate 16 Blood Pressure Blood Pressure [Ri ght Upper Arm] Pulse Oximetry 100 99 99 Oxygen Delivery Me thod Oxygen Flow Rate 02/26/24 19:00 Temperature Pulse Rate 75 Pulse Rate [Pulse Oximeter] Respiratory Rate Blood Pressure Blood Pressure [Ri ght Upper Arm] Pulse Oximetry 96 Oxygen Delivery Me thod Oxygen Flow Rate Hospitalist - H&P: Result Labs Labs: Short CBC 02/26/24 Range/Units 18:35 WBC 11.32 H (4.50-11.00) K/uL Hgb 13.1 (12.0-16.0) gm/dL Hct 40.9 (33.0-51.0) % Plt Count 288 (140-440) K/uL BMP 02/26/24 18:35 Sodium 133 L Potassium 4.2 Chloride 101 Carbon Dioxide 27 BUN 14 Creatinine 0.5 Glucose 101 Calcium 8.8 Assessment and Plan Assessment and plan (1) Intertrochanteric fracture of left femur: Problem comment: -mechanical fall, date of injury 02/26/2024 -medically optimized for surgery. May proceed to the OR. No further workup necessary. -patient is mildly hypertensive and has been followed in the outpatient clinic without medication most recently. -patient is not on blood thinners and has no known coagulopathy. Status: Acute (2) Hypothyroidism: Problem comment: Dxed 2006, on levothyroxine Status: Chronic (3) Osteopenia: Problem comment: on Actonel/alendronate since 2004, DEXA minimal osteopenia 10/08, on alendronate, which was stopped 09/12 Status: Chronic (4) Elevated blood pressure reading without diagnosis of hypertension: Problem comment: -PCP following. Elevated at admission likely due to recent trauma. Continue to follow. Status: Acute (5) Chronic cough: Problem comment: seen by ENT, Dr. Leblanc, 02/16 and recommended to try empirically Pepcid, seen by [facility], Dr. Radhames Orr 02/17 for chronic cough, office spirometry showed ?mild obstruction?, doing a trial of Advair with recheck in 2-3 months Status: Chronic (6) Major depressive disorder: Problem comment: on Citalopram (on something since 1988) Status: Chronic
[2024-02-26] MEDS: HYDROmorphone 0.5 mg/0.5 ml inj 0.2 MG IVP ×2 (20:11→22:35)
[2024-02-26] MEDS: ACETAMINOPHEN INJ 1,000 MG/100 ML VIAL 400 MG IVPB (20:11)
[2024-02-26] MEDS: SODIUM CHLORIDE 0.9 % (FLUSH) 10 ML SYRINGE 5 ML IVF (20:15)
[2024-02-26] MEDS: PANTOPRAZOLE SODIUM 40 MG INJ IVP (20:22)
[2024-02-26] MEDS: LACTATED RINGERS 1000 ML 1,000 ML 75 ML IV (22:35)
[2024-02-27] VITALS (29 sets, daily range): BP systolic 85–159; BP diastolic 47–96; PULSE 64–85; RESP 14–18; TEMP 36.2–37.3; O2SAT 85–99
[2024-02-27] MEDS: ACETAMINOPHEN 325 MG TABLET PO ×2 (04:25→20:29)
[2024-02-27 06:33] LABS: Hematocrit 37.4 % (33.0-51.0); Hemoglobin* 12.3 gm/dL (12.0-16.0); Mean Corpuscular HGB Conc 33 gm/dL (32-36); Mean Corpuscular Hemoglobin 29 pg (26-34); Mean Corpuscular Volume 88 fL (80-100); Platelet Count* 257 K/uL (140-440); Red Blood Count 4.26 m/uL (4.00-5.20)
[2024-02-27 06:34] LABS: Slide Review Reflex No
[2024-02-27 06:40] LABS: Chloride* 100 mmol/L (96-114); Sodium* 130 mmol/L (135-149)
[2024-02-27 06:43] LABS: Anion Gap 3 mEq/L (7-15); Blood Urea Nitrogen* 17 mg/dL (7-30); Carbon Dioxide* 27 mmol/L (20-32); Creatinine* 0.5 mg/dL (0.5-1.5); Est. Creatinine Clearance* 37.45; Estimated Glomerular Filt Rate 94 ml/min
[2024-02-27 06:44] LABS: Calcium* 8.7 mg/dL (8.4-10.6); Glucose* 111 mg/dL (60-115)
[2024-02-27] MEDS: HYDROmorphone 0.5 mg/0.5 ml inj 0.2 MG IVP ×2 (07:59→09:38)
[2024-02-27] MEDS: ONDANSETRON ODT 4 MG TAB PO (07:59)
--- NOTE | 2024-02-27 09:01 | NUTR.NU ---
RDN with nutrition screen related to positive skin risk. Patient admitted with fall, found to have left femur fracture. Plan for OR today. Diet order is currently NPO. Weight history has been stable. MST score is a 0. RDN will continue to monitor and reassess if appropriate at later date.
--- NOTE | 2024-02-27 09:22 | P.IMPN_ITS ---
Progress Note: A&P Assessment and plan (1) Intertrochanteric fracture of left femur: Problem details: - mechanical fall, date of injury 02/26/2024 - medically optimized for surgery - patient is mildly hypertensive and has been followed in the outpatient clinic without medication most recently - patient is not on blood thinners and has no known coagulopathy Status: Acute (2) Urinary retention: Problem details: - noted to have this on 02/25 imaging - bladder scan 02/26 reveals >900mL - patient having intermittent incontinence (h/o this), amenable to placing grubbs preoperatively 02/26, will remove postoperatively and follow closely Status: Acute (3) Hypothyroidism: Problem details: - Dxed 2006, on levothyroxine Status: Chronic (4) Osteopenia: Problem details: - on Actonel/alendronate since 2004, DEXA minimal osteopenia 10/08, on alendronate, which was stopped 09/12 Status: Chronic (5) Elevated blood pressure reading without diagnosis of hypertension: Problem details: - PCP following, elevated at admission likely due to recent trauma, continue to follow Status: Acute (6) Major depressive disorder: Problem details: - on Citalopram Status: Chronic Plan - to OR today - hospitalist team will continue to follow Subjective Date Seen: 02/27/24 Interval history: Yanira was admitted to the hospital last night for a comminuted L intertrochanteric fracture s/p mechanical fall. She will be having surgery today with Dr. Marcelo of Orthopedic Surgery. ER imaging revealed urinary retention; she's had minimal UOP + incontinence since admission and bedside bladder scan >900mL. Amenable to preoperative grubbs catheter placement if she is still unable to fully empty bladder. BP stable. Mild nausea with IV pain medications, no other concerns for hospitalist team. Exam Narrative: Exam Narrative: GEN: Alert and oriented, nontoxic HEENT: EOMIs bilaterally, no scleral icterus CV: RRR, No concerning murmurs R: LCTA bilaterally without concerning wheezing, air movement adequate Skin: No concerning skin lesions or rashes on exposed skin Neuro: Nonfocal Psych: Appropriate Const: Vital Signs, click to edit/add: Vital Signs - 24 hr 02/26/24 16:22 02/26/24 16:22 02/26/24 16:23 Temperature 97.0 F L Pulse Rate 80 82 Pulse Rate [Pulse Oximeter] 81 Respiratory Rate 18 Blood Pressure 183/148 H Blood Pressure [Le ft Arm] Blood Pressure [Ri ght Upper Arm] 183/148 H Pulse Oximetry 97 96 95 Oxygen Delivery Me thod Room Air Oxygen Flow Rate 02/26/24 16:30 02/26/24 16:45 02/26/24 17:04 Temperature Pulse Rate 81 76 76 Pulse Rate [Pulse Oximeter] Respiratory Rate Blood Pressure Blood Pressure [Le ft Arm] Blood Pressure [Ri ght Upper Arm] Pulse Oximetry 88 97 92 Oxygen Delivery Me thod Oxygen Flow Rate 02/26/24 17:15 02/26/24 17:47 02/26/24 17:48 Temperature Pulse Rate 78 75 74 Pulse Rate [Pulse Oximeter] Respiratory Rate Blood Pressure 177/84 H Blood Pressure [Le ft Arm] Blood Pressure [Ri ght Upper Arm] Pulse Oximetry 94 98 90 Oxygen Delivery Me thod Oxygen Flow Rate 02/26/24 17:49 02/26/24 17:54 02/26/24 18:00 Temperature Pulse Rate 78 70 Pulse Rate [Pulse Oximeter] Respiratory Rate 14 Blood Pressure Blood Pressure [Le ft Arm] Blood Pressure [Ri ght Upper Arm] Pulse Oximetry 88 96 94 Oxygen Delivery Me thod Nasal Cannula Oxygen Flow Rate 1.5 02/26/24 18:15 02/26/24 18:35 02/26/24 18:45 Temperature Pulse Rate 74 70 70 Pulse Rate [Pulse Oximeter] Respiratory Rate 16 Blood Pressure Blood Pressure [Le ft Arm] Blood Pressure [Ri ght Upper Arm] Pulse Oximetry 100 99 99 Oxygen Delivery Me thod Oxygen Flow Rate 02/26/24 19:00 02/26/24 19:20 02/26/24 19:20 Temperature 97.4 F L Pulse Rate 75 Pulse Rate [Pulse Oximeter] 76 Respiratory Rate 16 16 Blood Pressure Blood Pressure [Le ft Arm] 156/80 H Blood Pressure [Ri ght Upper Arm] Pulse Oximetry 96 88 88 Oxygen Delivery Me thod Room Air Room Air Oxygen Flow Rate 02/26/24 19:20 02/26/24 22:00 02/26/24 23:00 Temperature 98.0 F Pulse Rate Pulse Rate [Pulse Oximeter] 76 80 Respiratory Rate 16 14 Blood Pressure Blood Pressure [Le ft Arm] 169/64 H Blood Pressure [Ri ght Upper Arm] Pulse Oximetry 91 91 Oxygen Delivery Me thod Room Air Oxygen Flow Rate 02/27/24 04:15 Temperature 98.2 F Pulse Rate Pulse Rate [Pulse Oximeter] 71 Respiratory Rate 14 Blood Pressure Blood Pressure [Le ft Arm] 159/75 H Blood Pressure [Ri ght Upper Arm] Pulse Oximetry 95 Oxygen Delivery Me thod Room Air Oxygen Flow Rate Labs Labs: Laboratory Results - last 24 hr 02/26/24 02/27/24 18:35 06:09 WBC 11.32 H 8.20 RBC 4.58 4.26 Hgb 13.1 12.3 Hct 40.9 37.4 MCV 89 88 MCH 29 29 MCHC 32 33 RDW Coeff of Jenaro 13.9 Plt Count 288 257 Neut % (Auto) 89.1 H Lymph % (Auto) 6.8 L [place] % (Auto) 3.4 Eos % (Auto) 0.2 Baso % (Auto) 0.3 Neut # (Auto) 10.10 H Lymph # (Auto) 0.80 L [place] # (Auto) 0.40 Eos # (Auto) 0.00 Baso # (Auto) 0.00 Abs Immat Gran (auto) 0.00 Imm/Tot Granulo (auto) 0.2 Sodium 133 L 130 L Potassium 4.2 4.0 Chloride 101 100 Carbon Dioxide 27 27 Anion Gap 5 L 3 L BUN 14 17 Creatinine 0.5 0.5 Estimated Creat Clear 37.45 37.45 Estimated GFR 94 94 Glucose 101 111 Calcium 8.8 8.7
--- NOTE | 2024-02-27 10:06 | PC.SOCIAL ---
Addendum entered and electronically signed by BRENT Ghosh 02/27/24 15:35: Discharge planning: Joya from [facility] responded to this worker stating that they have female TCU openings this week. [facility] sent over a referral this afternoon to [facility]a via secure email. [facility] did not send PT/OT notes, as pt had not been seen by PT/OT yet. Social work to follow-up as needed. Original Note: Discharge planning: [facility] met with pt to discuss early discharge planning. Pt shared that she would like to go to [facility] if she needs rehab after surgery. [facility] reached out to Joya at [facility] about openings for rehab at the [facility] this week. Social work to follow-up as needed.
[2024-02-27] MEDS: ACETAMINOPHEN INJ 1,000 MG/100 ML VIAL 400 MG IVPB (10:34)
[2024-02-27] MEDS: HYDROmorphone 0.5 mg/0.5 ml inj IVP ×2 (11:34→20:31)
[2024-02-27] MEDS: LACTATED RINGERS 1000 ML 1,000 ML 75 ML IV (11:35)
--- NOTE | 2024-02-27 11:57 | P.ORCN_ITS ---
History of Present Illness HPI Date Seen: 02/27/24 Chief complaint: fall/hip pain Narrative: Yanira is a pleasant 83-year-old female who presented [place] ED on 02/26/2024 after a big extended family dog ran into her and caused her to fall landing on the left hip. She had significant pain about her left hip. Unable to bear weight. Presented to [facility] ED via EMS where x-rays were obtained and revealed a left basicervical femoral neck fracture. No other injuries noted. Denies any numbness. Orthopedics was consulted accordingly. [facility] Medical History Subjective memory complaints (2015) ?R41.89 - Other symptoms and signs involving cognitive functions and awareness (ICD-10) Urinary incontinence ?R32 - Unspecified urinary incontinence (ICD-10) Intertrochanteric fracture of left femur ?S72.142A - Displaced intertrochanteric fracture of left femur, initial encounter for closed fracture (ICD-10) Elevated blood pressure reading without diagnosis of hypertension ?R03.0 - Elevated blood-pressure reading, without diagnosis of hypertension (ICD-10) Chronic cough ?R05.3 - Chronic cough (ICD-10) Major depressive disorder ?F32.9 - Major depressive disorder, single episode, unspecified (ICD-10) Osteopenia (02/23/10) ?M85.80 - Other specified disorders of bone density and structure, unspecified site (ICD-10) Hypothyroidism (09/22/11) ?E03.9 - Hypothyroidism, unspecified (ICD-10) History of skin cancer ?Z85.828 - Personal history of other malignant neoplasm of skin (ICD-10) Surgical History History of squamous cell carcinoma excision ?Z98.890 - Other specified postprocedural states (ICD-10) ?Z85.9 - Personal history of malignant neoplasm, unspecified (ICD-10) History of basal cell carcinoma of skin ?Z85.828 - Personal history of other malignant neoplasm of skin (ICD-10) History of fracture of ankle ?Z87.81 - Personal history of (healed) traumatic fracture (ICD-10) History of oophorectomy (02/23/10) Social History What is your current living situation?: I presently have a place to live Problems where you live: no known problems Problems where you live details: NO KNOWN PROBLEMS In the past 12 months, utilities in danger of being shut off: no In the past 12 mos, have been you worried that your food would run out before you had money to buy more?: never true In the past 12 mos, the food you bought just didn't last and you didn't have money to buy more?: never true Highest level of school completed/degree received: Master's degree Smoking Status: Former smoker What tobacco products do you use: cigarettes Smoking packs per day: 1 Smoking cigarettes per day: 20.0 Smoking quit date/years: >15 years ago Second hand tobacco smoke exposure: No How often do you have a drink containing alcohol: 2-4 times a month How many standard drinks containing alcohol do you have on a typical day: 1 or 2 How often do you have six or more drinks on one occasion: Never AUDIT-C Alcohol total score: 2 Non-prescribed substance use: denies use How often does anyone, including family, friends and others, physically hurt you : never How often does anyone, including family, friends and others, insult or talk down to you: never How often does anyone, including family, friends and others, threaten you with harm: never How often does anyone, including family, friends and others, scream or curse at you: never service: No Meds Home Medications and Allergies Home Medications ?Medication ?Instructions ?Recorded ?Confirmed ?Type calcium 315 mg (as 2 tab PO DAILY 01/18/22 02/27/24 History citrate)-vitamin D3 6.25 mcg (250 unit) tablet citalopram 20 mg tablet 20 mg PO DAILY 02/27/24 02/27/24 History fluticasone furoate 100 1 ea inhalation DAILY 02/27/24 02/27/24 History mcg-vilanterol 25 mcg/dose inhalation powder (Breo Ellipta) levothyroxine 50 mcg tablet 50 mcg PO DAILY 02/27/24 02/27/24 History vitamins A,C,Q-zjbs-xaojcz 4,296 1 cap PO DAILY 02/27/24 02/27/24 History mcg-226 mg-90 mg capsule (PreserVision AREDS) Allergies Allergy/AdvReac Type Severity Reaction Status Date / Time No Known Allergies Allergy Unknown Verified 06/21/23 09:52 Ortho Exam Narrative Exam Narrative: She is alert and oriented x3. Lying supine in hospital bed. Cooperative with the exam. In no acute distress. Exam left hip shows generalized swelling, but no ecchymosis or other cutaneous changes. Tender palpation on the left hip. Pain about the left hip with any hip or knee range of motion. Neurologic intact in superficial and deep. For plan distribution to sensory light touch and motor function. 2+ DP and PT pulse. Strength and stability testing about the left hip deferred. Gait and station also deferred given left basicervical femoral neck fracture Const Vital Signs, click to edit/add: Vital Signs - 24 hr 02/26/24 16:22 02/26/24 16:22 02/26/24 16:23 Temperature 97.0 F L Pulse Rate 80 82 Pulse Rate [Pulse Oximeter] 81 Respiratory Rate 18 Blood Pressure 183/148 H Blood Pressure [Left Arm] Blood Pressure [Right Upper Arm] 183/148 H Pulse Oximetry 97 96 95 Oxygen Delivery Method Room Air Oxygen Flow Rate 02/26/24 16:30 02/26/24 16:45 02/26/24 17:04 Temperature Pulse Rate 81 76 76 Pulse Rate [Pulse Oximeter] Respiratory Rate Blood Pressure Blood Pressure [Left Arm] Blood Pressure [Right Upper Arm] Pulse Oximetry 88 97 92 Oxygen Delivery Method Oxygen Flow Rate 02/26/24 17:15 02/26/24 17:47 02/26/24 17:48 Temperature Pulse Rate 78 75 74 Pulse Rate [Pulse Oximeter] Respiratory Rate Blood Pressure 177/84 H Blood Pressure [Left Arm] Blood Pressure [Right Upper Arm] Pulse Oximetry 94 98 90 Oxygen Delivery Method Oxygen Flow Rate 02/26/24 17:49 02/26/24 17:54 02/26/24 18:00 Temperature Pulse Rate 78 70 Pulse Rate [Pulse Oximeter] Respiratory Rate 14 Blood Pressure Blood Pressure [Left Arm] Blood Pressure [Right Upper Arm] Pulse Oximetry 88 96 94 Oxygen Delivery Method Nasal Cannula Oxygen Flow Rate 1.5 02/26/24 18:15 02/26/24 18:35 02/26/24 18:45 Temperature Pulse Rate 74 70 70 Pulse Rate [Pulse Oximeter] Respiratory Rate 16 Blood Pressure Blood Pressure [Left Arm] Blood Pressure [Right Upper Arm] Pulse Oximetry 100 99 99 Oxygen Delivery Method Oxygen Flow Rate 02/26/24 19:00 02/26/24 19:20 02/26/24 19:20 Temperature 97.4 F L Pulse Rate 75 Pulse Rate [Pulse Oximeter] 76 Respiratory Rate 16 16 Blood Pressure Blood Pressure [Left Arm] 156/80 H Blood Pressure [Right Upper Arm] Pulse Oximetry 96 88 88 Oxygen Delivery Method Room Air Room Air Oxygen Flow Rate 02/26/24 19:20 02/26/24 22:00 02/26/24 23:00 Temperature 98.0 F Pulse Rate Pulse Rate [Pulse Oximeter] 76 80 Respiratory Rate 16 14 Blood Pressure Blood Pressure [Left Arm] 169/64 H Blood Pressure [Right Upper Arm] Pulse Oximetry 91 91 Oxygen Delivery Method Room Air Oxygen Flow Rate 02/27/24 04:15 02/27/24 08:00 02/27/24 11:30 Temperature 98.2 F 98.1 F Pulse Rate Pulse Rate [Pulse Oximeter] 71 77 Respiratory Rate 14 18 14 Blood Pressure Blood Pressure [Left Arm] 159/75 H 157/86 H Blood Pressure [Right Upper Arm] Pulse Oximetry 95 93 85 L Oxygen Delivery Method Room Air Room Air Room Air Oxygen Flow Rate 02/27/24 11:40 Temperature Pulse Rate Pulse Rate [Pulse Oximeter] Respiratory Rate 14 Blood Pressure Blood Pressure [Left Arm] Blood Pressure [Right Upper Arm] Pulse Oximetry 95 Oxygen Delivery Method Nasal Cannula Oxygen Flow Rate 2 Results Labs Labs: Laboratory Results - last 48 hr 02/26/24 02/27/24 18:35 06:09 WBC 11.32 H 8.20 RBC 4.58 4.26 Hgb 13.1 12.3 Hct 40.9 37.4 MCV 89 88 MCH 29 29 MCHC 32 33 RDW Coeff of Jenaro 13.9 Plt Count 288 257 Neut % (Auto) 89.1 H Lymph % (Auto) 6.8 L [place] % (Auto) 3.4 Eos % (Auto) 0.2 Baso % (Auto) 0.3 Neut # (Auto) 10.10 H Lymph # (Auto) 0.80 L [place] # (Auto) 0.40 Eos # (Auto) 0.00 Baso # (Auto) 0.00 Abs Immat Gran (auto) 0.00 Imm/Tot Granulo (auto) 0.2 Sodium 133 L 130 L Potassium 4.2 4.0 Chloride 101 100 Carbon Dioxide 27 27 Anion Gap 5 L 3 L BUN 14 17 Creatinine 0.5 0.5 Estimated Creat Clear 37.45 37.45 Estimated GFR 94 94 Glucose 101 111 Calcium 8.8 8.7 Diagnostic results Additional Comments: CT scan left femur from [facility] dated 02/26/2024 was ordered by a different provider and reviewed by me. This shows an acute, comminuted, left intertrochanteric femur fracture. There is accompanying mild the left hip degenerative changes and moderate to severe medial lateral compartment left knee degenerative changes. AP and lateral views of the left femur from [facility] dated 02/26/2024 were ordered by a different provider and reviewed by me. This also demonstrates the acute, comminuted, left intertrochanteric femur fracture in the basicervical neck region. Assessment and Plan Assessment and plan (1) Intertrochanteric fracture of left femur: Problem comment: - mechanical fall, date of injury 02/26/2024 - medically optimized for surgery - patient is mildly hypertensive and has been followed in the outpatient clinic without medication most recently - patient is not on blood thinners and has no known coagulopathy Status: Acute Total time spent: Total time spent is greater than 50% in coordination of care (as documented) at patient's floor/unit and/or counseling patient: (2) Urinary retention: Problem comment: - noted to have this on 02/25 imaging - bladder scan 02/26 reveals >900mL - patient having intermittent incontinence (h/o this), amenable to placing grubbs preoperatively 02/26, will remove postoperatively and follow closely Status: Acute Total time spent: Total time spent is greater than 50% in coordination of care (as documented) at patient's floor/unit and/or counseling patient: (3) Hypothyroidism: Problem comment: - Dxed 2006, on levothyroxine Status: Chronic Total time spent: Total time spent is greater than 50% in coordination of care (as documented) at patient's floor/unit and/or counseling patient: (4) Osteopenia: Problem comment: - on Actonel/alendronate since 2004, DEXA minimal osteopenia 10/08, on alendronate, which was stopped 09/12 Status: Chronic Total time spent: Total time spent is greater than 50% in coordination of care (as documented) at patient's floor/unit and/or counseling patient: (5) Elevated blood pressure reading without diagnosis of hypertension: Problem comment: - PCP following, elevated at admission likely due to recent trauma, continue to follow Status: Acute Total time spent: Total time spent is greater than 50% in coordination of care (as documented) at patient's floor/unit and/or counseling patient: (6) Major depressive disorder: Problem comment: - on Citalopram Status: Chronic Total time spent: Total time spent is greater than 50% in coordination of care (as documented) at patient's floor/unit and/or counseling patient: Plan I had a good discussion today with the patient. I helped her understand the current problem with her left proximal femur. I counseled her regarding the pros and cons of both nonoperative and surgical intervention. The risks of surgery include local risks (e.g. Infection, wound healing issues, delayed union or nonunion), and systemic risks (e.g. IA, stroke, VTE). After discussion of the risks of both nonoperative and surgical intervention, indeed she states understanding and would like to proceed with surgery. This will be for left femur cephalomedullary nail placement for intertrochanteric left femur fracture. I communicated with the hospitalist team as well as the anesthesia team to coordinate care for this patient. We will plan to do surgery later today. Therefore, the patient will remain NPO. I would anticipate as for the surgery that she would be able to weight bear as tolerated. She will also likely benefit from a care home facility/rehab facility stay following her hospitalization.
[2024-02-27] MEDS: MIDAZOLAM HCL 1 MG/ML inj IVP (13:33)
[2024-02-27] MEDS: fentaNYL 100 MCG/2 ML inj IVP (13:34)
--- NOTE | 2024-02-27 13:53 | SUR.PREOP ---
TIME?OUT:?1332 PT/RN/MDA?VERIFICATION?OF?SURGICAL?SITE,?PROCEDURE,?AND?CONSENT OBTAINED?PRIOR?TO?INVASIVE?PROCEDURE. all in agreement
--- NOTE | 2024-02-27 14:15 | CRLHL7_ITS ---
For Patients: As a result of the Cures Act, medical imaging exams and procedure reports are released immediately into your electronic medical record. You may view this report before your referring provider. If you have questions, please contact your health care provider. INDICATION: Intraoperative. TECHNIQUE: Two spot images of the hip. 1.24 mGy fluoroscopy dose. FINDINGS: Images taken during surgery. Dictated by Kit Lennon MD @ 02/28/2024 12:30:54 PM (Electronically Signed)
[2024-02-27] MEDS: CEFAZOLIN 2 GM in 0.9 % SODIUM CHLORIDE Mini-bag 100 ML IVPB ×2 (14:20→20:42)
[2024-02-27] MEDS: TRANEXAMIC ACID 100 MG/ML INJ 1000 MG IV (14:23)
--- NOTE | 2024-02-27 14:24 | W.PM.NB ---
Nerve Block Nerve Block Time Seen by Provider: 13:34 Date Seen: 02/27/24 Type of block requested by surgeon for post-operative analgesia: DRE/LFCN Side: left Time out performed: Yes Verification of patient name: Yes Verification of date of : Yes Site marking: site marked Name of person performing procedure: Kaleb Continuous monitoring Was continuous monitoring of O2 sat, B/P, monitor and storage bin tender, recorded every 15 minutes?: Yes Procedure Checklist: sterile prep, needles and gloves Ultrasound guided. Images saved: Yes Medications given in 5ml increments after negative aspiration: Ropivicaine %: 0.5 mL: 30 Needle gauge: 20 Precedex (mcg): 25 Patient tolerated procedure well: Yes Additional comments: Needle noted below psoas tendon needle noted adjacent to LFCN Block Charges Block Charge (with Pro Fee): Other Periph Nerve Block Use of Ultrasound Machine for Block: Yes- US Guidance/pain block
--- NOTE | 2024-02-27 14:25 | W.ANESCHARGE ---
Anesthesia Charges Start Date/Time Anesthesia Start Date: 02/27/24 Anesthesia Start Time: 13:55 Stop Date/Time Anesthesia Stop Date: 02/27/24 Anesthesia Stop Time: 15:25 Summary Extremes of Age - Over 70 or under 1: MDA
--- NOTE | 2024-02-27 14:59 | PM.ORPRC ---
Procedure Note Date of procedure: 02/27/24 Procedure: PREOPERATIVE DIAGNOSES: 1. Left femur intertrochanteric/basicervical femoral neck fracture, closed, acute POSTOPERATIVE DIAGNOSES: 1. Left femur intertrochanteric/basicervical femoral neck fracture, closed, acute NAME OF OPERATION: 1. Left femur intertrochanteric/basicervical femoral neck fracture fixation with intramedullary nail 2. 95256 - intraoperative fluoroscopy up to 1 hour. SURGEON: Amandeep Marcelo MD DIRECTOR OF ENTERTAINMENT: Harpal CARLISLE. Of note, an wellness assistant was critical for this case to aide in patient positioning, extremity positioning, tissue retraction, instrument manipulation, and closure. ANESTHESIA: Spinal EBL: 150 ml IMPLANTS: Synthes short TFN 12 mm x 170 mm with 95 mm lag screw and 1 distal 5.0 mm interlocking screws COMPLICATIONS: None evident INDICATIONS: The patient is a pleasant, 83-year-old female who unfortunately sustained a recent fall. They landed on their left hip and were unable to bear weight. They experienced significant pain which prompted a visit to [facility]. X-rays were obtained and revealed a proximal femur fracture on the left consistent with a pertrochanteric (i.e. intertrochanteric / subtrochanteric) femur fracture. Given these findings, along with the desire to help with pain control and improved mobility / mobilization, surgery was recommended. FINDINGS: Basicervical / intertrochanteric left femur fracture with displacement, shortening, and varus angulation. PROCEDURE: Following a thorough discussion of risks, benefits, and alternatives, consent was obtained and the left hip was marked. After obtaining proper medical evaluation determining the patient was optimized prior to surgery, they were brought to the operating room and placed supine on the operating table. Induction of anesthesia undertaken. 1 g IV Ancef was administered within 1 hr of incision preoperatively. Proper time-out was performed identifying proper patient, site, and procedure. The operative extremity was prepped & draped in the appropriate sterile fashion using ChloraPrep after the patient was positioned on the [place] table with the head in neutral alignment all bone prominences well padded. C-arm fluoroscopic imaging was utilized to obtain AP and lateral views of the operative hip. This indeed confirm proper reduction of the proximal femur fracture. 10 blade skin incision was made proximal to the greater trochanteric tip. Sharp incision through skin and gluteal fascia allowed palpation of the greater trochanteric tip. A sharp awl was utilized and placed against the greater trochanteric tip. This was confirmed on C-arm and both in AP and lateral planes to be in appropriate starting position. Aiming down the canal. Once breaching the cortex, the ball-tip guidewire was passed the length of the femur. Once confirming via palpable scrape and visual C-Arm imagining that the guide wire with intraosseous, the depth gauge was used. The proper nail length was selected. The opening / proximal reamer was used followed by opening of the short 12 x 170 mm IM nail which was then inserted without difficulty. The triple trocar was then applied to the lateral femur, 10 blade incision through the skin and ITB band along the trocars allowed them to be advanced to the lateral cortex. This was confirmed fluoroscopically to be in appropriate position. The guide pin was then placed and confirmed on AP and lateral views with the goal of center center position. The length was measured as noted above and the reamer used followed by screw application. Reduction of the fracture was monitored during insertion. The proximal nail locking screw was tightened down, and left static. At this stage, C-arm confirmed proper screw/lag screw position. We then turned our attention to the distal interlocking screw. The appropriate trocar was place, the screw drilled, measured and placed with good security of the screw. Again C-arm images were obtained to confirm position within the nail and the nail to be within the bone. At this stage, the wounds were thoroughly irrigated normal saline; closure was performed with #0 Vicryl for the deep gluteal fascia, and IT band. 2-0 Vicryl and 4-0 Monocryl was utilized for subcutaneous and subcuticular closure, respectively. The patient was awoken from anesthesia and transferred to the PACU in stable condition. PLAN: 1. Weight bear as tolerated operative lower extremity. 2. Encouraged ice. 3. Oxycodone for pain as needed. 4. Anticipate the need for detention facility transfer once medically stabilized 5. 23 hr perioperative antibiotics. 6. Xarelto for DVT prophylaxis along with Shankar adriennee and SCDs.
--- NOTE | 2024-02-27 15:33 | P.ANES_ITS ---
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
--- NOTE | 2024-02-27 15:33 | W.ANESCHARGE ---
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
--- NOTE | 2024-02-27 19:11 | PC.NURSE ---
End of Shift: This shift prior to surgery the patient was very painful in her l hip... the patient had an episode of emesis and the pain was not well managed until after surgery. VSS, on RA except when the patient dozes off she is noted to desaturate... required 1 L NC. No pain after surgery... the patients feeling has returned. Tolerated dinner well with no N/V. Patients is at the bedside. Hourly VS remain. The patient is incontinent at times. Call light within reach. Ice PRN to hip, can weight bear per orders. Kacy MIKE BSN
[2024-02-27] MEDS: SODIUM CHLORIDE 0.9 % (FLUSH) 10 ML SYRINGE 5 ML IVF (21:05)
[2024-02-28] VITALS (11 sets, daily range): BP systolic 153–173; BP diastolic 72–85; PULSE 74–79; RESP 16–21; TEMP 36.6–36.8; O2SAT 93–97
[2024-02-28] MEDS: CEFAZOLIN 2 GM in 0.9 % SODIUM CHLORIDE Mini-bag 100 ML IVPB (05:22)
[2024-02-28] MEDS: ACETAMINOPHEN 325 MG TABLET PO ×3 (05:28→22:03)
[2024-02-28 06:36] LABS: Basophils Absolute Auto 0.01 K/uL (0.00-0.30); Basophils Percent Auto 0.1 % (0.0-3.0); Eosinophils Absolute Auto 0.02 K/uL (0.00-0.50); Eosinophils Percent Auto 0.2 % (0.0-7.0); Hematocrit 34.9 % (33.0-51.0); Hemoglobin* 11.5 gm/dL (12.0-16.0); Immature Granulocytes Abs Auto 0.02 K/uL (0.00-0.30); Immature Granulocytes Pct Auto 0.2 %; Lymphocytes Percent Auto 9.9 % (20-44); Mean Corpuscular HGB Conc 33 gm/dL (32-36); Mean Corpuscular Hemoglobin 29 pg (26-34); Mean Corpuscular Volume 88 fL (80-100); Monocytes Percent Auto 6.8 % (0.0-11.0); Neutrophils Percent Auto 82.8 % (42.0-72.0); Platelet Count* 207 K/uL (140-440); RDW Coefficient of Variation % 13.6 % (11.5-15.5); Red Blood Count 3.99 m/uL (4.00-5.20); White Blood Count* 9.31 K/uL (4.50-11.00)
[2024-02-28 06:49] LABS: Slide Review Reflex No
[2024-02-28 07:08] LABS: Chloride* 96 mmol/L (96-114); Sodium* 125 mmol/L (135-149)
[2024-02-28 07:11] LABS: Anion Gap 2 mEq/L (7-15); Blood Urea Nitrogen* 13 mg/dL (7-30); Carbon Dioxide* 27 mmol/L (20-32); Creatinine* 0.6 mg/dL (0.5-1.5); Est. Creatinine Clearance* 35.88; Estimated Glomerular Filt Rate 90 ml/min; Glucose* 108 mg/dL (60-115)
[2024-02-28 07:12] LABS: Calcium* 8.3 mg/dL (8.4-10.6)
--- NOTE | 2024-02-28 07:43 | PC.NURSE ---
Shift note ([id number]): Patient pleasant, alert and oriented. Had an episode of nausea and retching first time up after surgery. Pivot transferred slowly to bedside commode with walker, gait belt and assist of two. Dressings to left upper thigh and left hip C,D&I. Given active ice, PRN Tylenol and PRN Dilaudid for pain rated 4-6/10.
--- NOTE | 2024-02-28 08:36 | PM.ORPN ---
Subjective Subjective Date Seen: 02/28/24 Principal diagnosis: POD 1 left IM nail for subtrochanteric fracture Interval history: Patient reports doing better this morning; some mild nausea with pain which is typical for her otherwise no emesis. Looking forward to working with therapy. No acute events over night. Pain managed with scheduled and PRN medications, ice. DVT prophylaxis: Rivaroxaban, SCDs, walking. Denies fevers, chills, aches, vomiting, CP, SOB/HALL, or lightheadedness. She is going to order breakfast this morning. States she does not have great help at home, thus agrees with SNF placement. Ortho Exam Narrative Exam Narrative: -Patient appears comfortable in recliner; no apparent acute distress -Alert and oriented times 3 -Operative hip swollen; soft tissues supple; no obvious erythema. Warmth appropriate -Surgical dressings clean, dry, intact; no obvious drainage, no erythematous streaking peripheral to the bandage -Bilateral calves soft and supple; no significant swelling, edema, tenderness, erythema, discoloration, warmth, or palpable cords -2+ DP/PT pulses, intact dermatomes and myotomes distally (5/5 strength). No numbness about the lateral femoral cutaneous nerve distribution. Const Vital Signs, click to edit/add: Vital Signs - 24 hr 02/27/24 11:00 02/27/24 11:30 02/27/24 11:40 Temperature Pulse Rate Pulse Rate [Pulse Oximeter] 72 Respiratory Rate 14 14 14 Blood Pressure Blood Pressure [Left Arm] 151/76 H Pulse Oximetry 88 85 L 95 Oxygen Delivery Method Room Air Room Air Nasal Cannula Oxygen Flow Rate 2 02/27/24 12:41 02/27/24 13:35 02/27/24 13:43 Temperature Pulse Rate 70 64 Pulse Rate [Pulse Oximeter] Respiratory Rate 14 16 14 Blood Pressure 148/69 H 125/62 Blood Pressure [Left Arm] Pulse Oximetry 94 98 94 Oxygen Delivery Method Nasal Cannula Nasal Cannula Nasal Cannula Oxygen Flow Rate 1 3 3 02/27/24 13:47 02/27/24 15:20 02/27/24 15:25 Temperature 97.6 F Pulse Rate 69 67 67 Pulse Rate [Pulse Oximeter] Respiratory Rate 14 16 16 Blood Pressure 103/56 L 85/47 L 92/50 L Blood Pressure [Left Arm] Pulse Oximetry 94 94 96 Oxygen Delivery Method Nasal Cannula Nasal Cannula Nasal Cannula Oxygen Flow Rate 3 2 2 02/27/24 15:30 02/27/24 15:35 02/27/24 15:40 Temperature 97.4 F L Pulse Rate 67 72 74 Pulse Rate [Pulse Oximeter] Respiratory Rate 16 16 18 Blood Pressure 102/55 L 107/57 L 111/58 L Blood Pressure [Left Arm] Pulse Oximetry 97 97 95 Oxygen Delivery Method Nasal Cannula Nasal Cannula Nasal Cannula Oxygen Flow Rate 2 2 2 02/27/24 15:45 02/27/24 15:50 02/27/24 16:10 Temperature 97.4 F L 97.2 F L Pulse Rate 77 72 72 Pulse Rate [Pulse Oximeter] Respiratory Rate 18 17 14 Blood Pressure 111/57 L 123/57 L 127/67 Blood Pressure [Left Arm] Pulse Oximetry 95 99 96 Oxygen Delivery Method Nasal Cannula Nasal Cannula Nasal Cannula Oxygen Flow Rate 2 2 1 02/27/24 16:20 02/27/24 16:35 02/27/24 16:50 Temperature 97.3 F L 97.3 F L 97.3 F L Pulse Rate 72 73 71 Pulse Rate [Pulse Oximeter] Respiratory Rate 14 16 16 Blood Pressure 127/65 129/69 131/96 H Blood Pressure [Left Arm] Pulse Oximetry 96 95 97 Oxygen Delivery Method Nasal Cannula Nasal Cannula Room Air Oxygen Flow Rate 1 1 02/27/24 17:05 02/27/24 17:30 02/27/24 18:00 Temperature 97.7 F 97.7 F 97.7 F Pulse Rate 78 78 76 Pulse Rate [Pulse Oximeter] Respiratory Rate 16 16 18 Blood Pressure 132/63 131/69 148/64 H Blood Pressure [Left Arm] Pulse Oximetry 96 96 93 Oxygen Delivery Method Oxygen Flow Rate 02/27/24 19:15 02/27/24 20:00 02/27/24 21:00 Temperature 99.2 F 98.4 F Pulse Rate 82 85 80 Pulse Rate [Pulse Oximeter] Respiratory Rate Blood Pressure 154/73 H 145/71 H 151/83 H Blood Pressure [Left Arm] Pulse Oximetry 94 91 91 Oxygen Delivery Method Room Air Room Air Room Air Oxygen Flow Rate 02/27/24 22:00 02/27/24 22:10 02/27/24 22:15 Temperature 97.5 F L Pulse Rate 85 Pulse Rate [Pulse Oximeter] Respiratory Rate 17 17 Blood Pressure 152/75 H Blood Pressure [Left Arm] Pulse Oximetry 94 94 94 Oxygen Delivery Method Room Air Room Air Oxygen Flow Rate 02/28/24 03:00 02/28/24 08:04 Temperature 98.1 F 97.8 F Pulse Rate Pulse Rate [Pulse Oximeter] 74 79 Respiratory Rate 21 18 Blood Pressure Blood Pressure [Left Arm] 154/79 H 172/85 H Pulse Oximetry 97 97 Oxygen Delivery Method Room Air Oxygen Flow Rate Assessment and Plan Assessment and plan (1) Intertrochanteric fracture of left femur: Problem details: - mechanical fall, date of injury 02/26/2024 - medically optimized for surgery - patient is mildly hypertensive and has been followed in the outpatient clinic without medication most recently - patient is not on blood thinners and has no known coagulopathy Status: Acute (2) Status post-operative repair of closed hip fracture: Problem details: POD 1 left IM nail for subtrochanteric fracture (date of surgery 02/27/2024) Status: Acute (3) Urinary retention: Problem details: - noted to have this on 02/25 imaging - bladder scan 02/26 reveals >900mL - patient having intermittent incontinence (h/o this), amenable to placing grubbs preoperatively 02/26, will remove postoperatively and follow closely Status: Acute (4) Hypothyroidism: Problem details: - Dxed 2006, on levothyroxine Status: Chronic (5) Osteopenia: Problem details: - on Actonel/alendronate since 2004, DEXA minimal osteopenia 10/08, on alendronate, which was stopped 09/12 Status: Chronic (6) Elevated blood pressure reading without diagnosis of hypertension: Problem details: - PCP following, elevated at admission likely due to recent trauma, continue to follow Status: Acute (7) Major depressive disorder: Problem details: - on Citalopram Status: Chronic Plan - Complete 23 hour perioperative antibiotics. - PT/OT consult for education and assistance. - Social work consult for discharge planning - plan for SNF - Prescribed analgesics as needed - DVT prophylaxis: Rivaroxaban, walking, and SCDs - Anticipation is for discharge to SNF pending adequate pain control, safe with mobilization, and SNF placement
[2024-02-28] MEDS: SODIUM CHLORIDE 0.9 % (FLUSH) 10 ML SYRINGE 5 ML IVF ×2 (08:49→20:46)
[2024-02-28] MEDS: RIVAROXABAN 10 MG TABLET PO (08:49)
--- NOTE | 2024-02-28 11:11 | PM.IMPN1 ---
Progress Note: A&P Assessment and plan (1) Intertrochanteric fracture of left femur: Problem details: - mechanical fall, date of injury 02/26/2024 - s/p IM nail with Dr. Marcelo of Orthopedic surgery 02/27/24) Status: Acute (2) Status post-operative repair of closed hip fracture: Problem details: - POD 1 left IM nail for subtrochanteric fracture (date of surgery 02/27/2024) Status: Acute (3) Urinary retention: Problem details: - noted to have this on 02/25 imaging - bladder scan 02/26 reveals >900mL - patient having intermittent incontinence (h/o this), following symptoms and bladder scan closely Status: Acute (4) Hypothyroidism: Problem details: - Dxed 2006, on levothyroxine Status: Chronic (5) Osteopenia: Problem details: - on Actonel/alendronate since 2004, DEXA minimal osteopenia 10/08, on alendronate, which was stopped 09/12 Status: Chronic (6) Elevated blood pressure reading without diagnosis of hypertension: Problem details: - PCP following, elevated at admission likely due to recent trauma, continue to follow - age appropriate control at this time Status: Acute (7) Major depressive disorder: Problem details: - on Citalopram Status: Chronic Plan - per above - likely TCU d/c tomorrow Subjective Date Seen: 02/28/24 Interval history: Yanira was admitted to the hospital on 02/25 for a L hip fracture after a mechanical fall. POD #1 from IM nail with Dr. Marcelo of Orthopedic Surgery (02/27/24). No concerns for hospitalist team today. Therapies following, TCU stay recommended. Exam Narrative: Exam Narrative: GEN: Alert and oriented, sitting comfortably in bedside chair and having breakfast HEENT: EOMIs bilaterally, no scleral icterus CV: RRR, No concerning murmurs, rubs, or gallops R: LCTA bilaterally without concerning wheezing, air movement adequate Skin: No concerning skin lesions or rashes on exposed skin Neuro: Nonfocal Psych: Appropriate Const: Vital Signs, click to edit/add: Vital Signs - 24 hr 02/27/24 11:30 02/27/24 11:40 02/27/24 12:41 Temperature Pulse Rate Pulse Rate [Pulse Oximeter] Respiratory Rate 14 14 14 Blood Pressure Blood Pressure [Le ft Arm] Pulse Oximetry 85 L 95 94 Oxygen Delivery Me thod Room Air Nasal Cannula Nasal Cannula Oxygen Flow Rate 2 1 02/27/24 13:35 02/27/24 13:43 02/27/24 13:47 Temperature Pulse Rate 70 64 69 Pulse Rate [Pulse Oximeter] Respiratory Rate 16 14 14 Blood Pressure 148/69 H 125/62 103/56 L Blood Pressure [Le ft Arm] Pulse Oximetry 98 94 94 Oxygen Delivery Me thod Nasal Cannula Nasal Cannula Nasal Cannula Oxygen Flow Rate 3 3 3 02/27/24 15:20 02/27/24 15:25 02/27/24 15:30 Temperature 97.6 F Pulse Rate 67 67 67 Pulse Rate [Pulse Oximeter] Respiratory Rate 16 16 16 Blood Pressure 85/47 L 92/50 L 102/55 L Blood Pressure [Le ft Arm] Pulse Oximetry 94 96 97 Oxygen Delivery Me thod Nasal Cannula Nasal Cannula Nasal Cannula Oxygen Flow Rate 2 2 2 02/27/24 15:35 02/27/24 15:40 02/27/24 15:45 Temperature 97.4 F L Pulse Rate 72 74 77 Pulse Rate [Pulse Oximeter] Respiratory Rate 16 18 18 Blood Pressure 107/57 L 111/58 L 111/57 L Blood Pressure [Le ft Arm] Pulse Oximetry 97 95 95 Oxygen Delivery Me thod Nasal Cannula Nasal Cannula Nasal Cannula Oxygen Flow Rate 2 2 2 02/27/24 15:50 02/27/24 16:10 02/27/24 16:20 Temperature 97.4 F L 97.2 F L 97.3 F L Pulse Rate 72 72 72 Pulse Rate [Pulse Oximeter] Respiratory Rate 17 14 14 Blood Pressure 123/57 L 127/67 127/65 Blood Pressure [Le ft Arm] Pulse Oximetry 99 96 96 Oxygen Delivery Me thod Nasal Cannula Nasal Cannula Nasal Cannula Oxygen Flow Rate 2 1 1 02/27/24 16:35 02/27/24 16:50 02/27/24 17:05 Temperature 97.3 F L 97.3 F L 97.7 F Pulse Rate 73 71 78 Pulse Rate [Pulse Oximeter] Respiratory Rate 16 16 16 Blood Pressure 129/69 131/96 H 132/63 Blood Pressure [Le ft Arm] Pulse Oximetry 95 97 96 Oxygen Delivery Me thod Nasal Cannula Room Air Oxygen Flow Rate 1 02/27/24 17:30 02/27/24 18:00 02/27/24 19:15 Temperature 97.7 F 97.7 F 99.2 F Pulse Rate 78 76 82 Pulse Rate [Pulse Oximeter] Respiratory Rate 16 18 Blood Pressure 131/69 148/64 H 154/73 H Blood Pressure [Le ft Arm] Pulse Oximetry 96 93 94 Oxygen Delivery Me thod Room Air Oxygen Flow Rate 02/27/24 20:00 02/27/24 21:00 02/27/24 22:00 Temperature 98.4 F Pulse Rate 85 80 Pulse Rate [Pulse Oximeter] Respiratory Rate Blood Pressure 145/71 H 151/83 H Blood Pressure [Le ft Arm] Pulse Oximetry 91 91 94 Oxygen Delivery Me thod Room Air Room Air Oxygen Flow Rate 02/27/24 22:10 02/27/24 22:15 02/28/24 03:00 Temperature 97.5 F L 98.1 F Pulse Rate 85 Pulse Rate [Pulse Oximeter] 74 Respiratory Rate 17 17 21 Blood Pressure 152/75 H Blood Pressure [Le ft Arm] 154/79 H Pulse Oximetry 94 94 97 Oxygen Delivery Hi thod Room Air Room Air Oxygen Flow Rate 02/28/24 08:04 02/28/24 09:18 02/28/24 09:20 Temperature 97.8 F Pulse Rate Pulse Rate [Pulse Oximeter] 79 79 Respiratory Rate 18 18 18 Blood Pressure Blood Pressure [Le ft Arm] 172/85 H Pulse Oximetry 97 96 Oxygen Delivery Me thod Room Air Room Air Oxygen Flow Rate Labs Labs: Laboratory Results - last 24 hr 02/28/24 06:25 WBC 9.31 RBC 3.99 L Hgb 11.5 L Hct 34.9 MCV 88 MCH 29 MCHC 33 RDW Coeff of Jenaro 13.6 Plt Count 207 Neut % (Auto) 82.8 H Lymph % (Auto) 9.9 L [place] % (Auto) 6.8 Eos % (Auto) 0.2 Baso % (Auto) 0.1 Neut # (Auto) 7.70 H Lymph # (Auto) 0.90 [place] # (Auto) 0.60 Eos # (Auto) 0.02 Baso # (Auto) 0.01 Abs Immat Gran (auto) 0.02 Imm/Tot Granulo (auto) 0.2 Sodium 125 L Potassium 4.0 Chloride 96 Carbon Dioxide 27 Anion Gap 2 L BUN 13 Creatinine 0.6 Estimated Creat Clear 35.88 Estimated GFR 90 Glucose 108 Calcium 8.3 L
[2024-02-28] MEDS: OXYCODONE 5 MG TABLET PO (12:28)
[2024-02-28] MEDS: ONDANSETRON ODT 4 MG TAB PO (13:12)
--- NOTE | 2024-02-28 13:39 | PC.SOCIAL ---
Addendum entered and electronically signed by BRENT Ghosh 02/28/24 16:28: Discharge planning: general scrap worker provided pt with a copy of The Important Message from Medicare form and explained the discharge appeal process with Medicare. Pt has no plans of appealing her discharge and is pleased with the discharge plan. general scrap worker also confirmed with pt's the transport time and he said he will be her around 11:30-12pm to transport the pt for discharge. Social work to follow-up as needed. Addendum entered and electronically signed by BRENT Ghosh 02/28/24 15:45: Discharge planning: Pre-admission screening completed and sent to Joya at [facility] via secure email. [id number]. Social work to follow-up as needed. Addendum entered and electronically signed by MARCO Hudson Student Field Contractor 02/28/24 14:22: Pt has been accepted to [facility] tomorrow with a private room, private bath. Social work internet manager talked to pt and pt's . They are pleased with this plan. Pt's will transport pt upon D/C tomorrow. She needs to be at the facility before 14:00. Social work to follow up. Original Note: Discharge planning: general scrap worker sent PT/OT notes and today's doctor's note and orthopedic note to Joya at [facility] via secure email this afternoon per her request. Social work to follow-up as needed.
--- NOTE | 2024-02-28 15:20 | PC.NURSE ---
End of Shift: Patient pleasant and cooperative, A&O. VSS, afebrile. SpO2 maintained above 90% on RA. Patient reports pain in her left hip this shift, managed with PRN medication, see MAR. When patient is up and moving, she reports the pain makes her feel nauseas, managed with PRN medication, see MAR. Dressing on left hip C/D/I. Tolerating regular diet. 2A walker and gait belt to bathroom and chair.
--- NOTE | 2024-02-28 22:29 | PC.NURSE ---
End of Shift: Patient pleasant and cooperative. Afebrile. Dressing to left hip C/D/I. CMS intact. Up to bathroom and walking in hallway with 1 assist, walker and gait belt. Rating pain up to 4-6/10 and PRN Tylenol given x2, declined Oxycodone. Tolerating regular diet with no nausea.
[2024-02-29] MEDS: ACETAMINOPHEN 325 MG TABLET PO ×2 (03:49→10:45)
[2024-02-29] MEDS: SENNOSIDES/DOCUSATE TABLET 1 TAB PO (03:49)
[2024-02-29 03:53] VITALS: BP 168/74; PULSE 74; RESP 18; TEMP 37.1; O2SAT 91
[2024-02-29] MEDS: LEVOTHYROXINE 50 MCG TABLET PO (06:02)
--- NOTE | 2024-02-29 06:31 | PC.NURSE ---
End of shift note [id number]: Pt alert & oriented x 4 and [place]. She is transferring/ambulating with assist of 1 using walker and gait belt. Dressings to L hip C/D/I and CMS to LLE intact. Pt has been afebrile and on RA throughout the shift. Pt continent and incontinent of bladder. PRN Tylenol given for 3/10 L hip/leg pain. PRN Senna-S given to promote BM. Pt requests not to take narcotic pain medication due to causing her nausea with prior admin. Bed alarm on, call light within reach. Pt using call light appropriately throughout the shift.
[2024-02-29 07:00] VITALS: BP 169/70; PULSE 72; RESP 20; TEMP 36.2; O2SAT 97
[2024-02-29 07:34] LABS: Chloride* 99 mmol/L (96-114); Potassium* 3.9 mmol/L (3.6-5.1); Sodium* 130 mmol/L (135-149)
[2024-02-29 07:37] LABS: Anion Gap 4 mEq/L (7-15); Blood Urea Nitrogen* 11 mg/dL (7-30); Carbon Dioxide* 27 mmol/L (20-32); Creatinine* 0.5 mg/dL (0.5-1.5); Est. Creatinine Clearance* 35.88; Estimated Glomerular Filt Rate 94 ml/min
[2024-02-29 07:38] LABS: Calcium* 8.5 mg/dL (8.4-10.6); Glucose* 102 mg/dL (60-115)
[2024-02-29 09:43] LABS: SARS Antigen* Negative (Negative)
[2024-02-29] MEDS: RIVAROXABAN 10 MG TABLET PO (10:00)
[2024-02-29] MEDS: CITALOPRAM HYDROBROMIDE 20 MG TABLET PO (10:01)
--- NOTE | 2024-02-29 10:16 | PM.DS1 ---
DS: Providers Provider Date Seen: 02/29/24 Date of admission: 02/26/24 19:59 Primary care physician: Sharon Kendrick MD Admitting Clinician: Capri Oakes MD Consults: OT, PT, Orthopedic Surgery Attending Physician on discharge: Shana Lin MD Date of Discharge: 02/29/24 DS: Diagnosis Discharge Diagnosis (1) Status post-operative repair of closed hip fracture: Status: Acute Problem details: - LEFT IM nail for subtrochanteric fracture (date of surgery 02/27/2024) (2) Urinary retention: Status: Acute Problem details: - noted to have this on 02/25 imaging - preoperative bladder scan revealed >900mL - patient has history of incontinence, normal UOP postoperatively with no concerns of persistent retention (3) Elevated blood pressure reading without diagnosis of hypertension: Status: Acute Problem details: - PCP follows as an outpatient - age appropriate control at this time (4) Hypothyroidism: Status: Chronic Problem details: - Dxed 2006, on levothyroxine DS: Summary Hospital Course Hospital Course: Yanira was admitted to the hospital on 02/25 for a L hip fracture after a mechanical fall. She had a LEFT IM nail placed with Dr. Marcelo of Orthopedic Surgery (02/27/24). Did well postoperatively, followed by therapies who recommend TCU stay. Comorbidities above, stable. Medically appropriate for d/c to [facility] on 02/29/24. Status at Discharge Overall status at discharge: patient is progressing back to baseline Time Spent with Patient Time attestation: Total time spent providing and/or coordinating discharge services: Time spent: Less than 30 minutes Exam Narrative: Exam Narrative: GEN: Alert and oriented, sitting comfortably in bedside chair HEENT: EOMIs bilaterally, no scleral icterus CV: RRR, No concerning murmurs R: LCTA bilaterally Skin: No concerning skin lesions or rashes on exposed skin Neuro: Nonfocal Psych: Appropriate Const: Vital Signs, click to edit/add: Vital Signs - 24 hr 02/28/24 11:31 02/28/24 15:00 02/28/24 15:00 Temperature 98.1 F 98.1 F Pulse Rate [Bilate ral Dorsalis Pedis ] Pulse Rate [Pulse Oximeter] 77 75 Respiratory Rate 18 16 Blood Pressure [Le ft Arm] 156/75 H 173/75 H Blood Pressure [Ri ght Arm] Pulse Oximetry 95 97 97 Oxygen Delivery Me thod Room Air Room Air Room Air 02/28/24 15:00 02/28/24 19:00 02/28/24 22:00 Temperature 98.2 F Pulse Rate [Bilate ral Dorsalis Pedis ] Pulse Rate [Pulse Oximeter] 75 77 Respiratory Rate 16 16 Blood Pressure [Le ft Arm] 153/72 H Blood Pressure [Ri ght Arm] Pulse Oximetry 94 94 Oxygen Delivery Me thod Room Air 02/28/24 23:00 02/28/24 23:23 02/28/24 23:25 Temperature 98.0 F Pulse Rate [Bilate ral Dorsalis Pedis ] Pulse Rate [Pulse Oximeter] 75 75 Respiratory Rate 18 18 18 Blood Pressure [Le ft Arm] Blood Pressure [Ri ght Arm] 159/73 H Pulse Oximetry 93 93 Oxygen Delivery Id thod Room Air Room Air 02/29/24 03:53 02/29/24 07:00 02/29/24 07:00 Temperature 98.7 F 97.1 F L Pulse Rate [Bilate ral Dorsalis Pedis ] 72 Pulse Rate [Pulse Oximeter] 74 Respiratory Rate 18 20 20 Blood Pressure [Le ft Arm] Blood Pressure [Ri ght Arm] 168/74 H 169/70 H Pulse Oximetry 91 97 97 Oxygen Delivery Id thod Room Air Room Air Room Air DS: Data Data Completed and Pending Labs on day of discharge: Labs from last 24 hours 02/29/24 02/29/24 09:10 06:41 Sodium 130 L Potassium 3.9 Chloride 99 Carbon Dioxide 27 Anion Gap 4 L BUN 11 Creatinine 0.5 Estimated Creat Clear 35.88 Estimated GFR 94 Glucose 102 Calcium 8.5 SARS-CoV-2 Ag (Rapid) Negative Discharge Plan Discharge Disposition: [facility] Date of Admission: 02/26/24 19:59 Attending Provider on Discharge: Shana Lin Primary Care Provider: Sharon Kendrick Condition: Stable Anticipated Discharge Date/Time: 02/29/24 08:54 Discharge Medications: New sennosides-docusate sodium [Senna-S] 8.6-50 mg tablet 1 - 4 tab-cap PO BID PRN (Reason: constipation) Qty: 60 0RF Rx Instructions: Hold medication if experiencing loose stools. aspirin 81 mg tablet,delayed release (DR/EC) 81 mg PO BID Qty: 50 0RF Rx Instructions: Medication to help prevent blood clots postoperatively; take TWICE daily. acetaminophen 500 mg capsule 500 - 1,000 mg PO Q6H MDD 4000mg PRNQty: 100 0RF oxycodone 5 mg tablet 2.5 - 5 mg PO Q4-6H MDD 6 PRN (Reason: pain) Qty: 30 0RF Rx Instructions: Take as needed for postop pain: 2.5mg mild pain, 5mg moderate-severe pain; wean as tolerated. rivaroxaban 10 mg tablet 10 mg PO DAILY Qty: 3 0RF Rx Instructions: Medication for deep vein clot prevention post surgery. Complete this medication before starting Aspirin. hydroxyzine pamoate [Vistaril] 25 mg capsule 25 mg PO TID PRNQty: 30 0RF Rx Instructions: prn pain - give with Tylenol. Please try this before Oxycodone, may cause drowsiness Continued calcium citrate-vitamin D3 315 mg-6.25 mcg (250 unit) tablet 2 tab PO DAILY fluticasone furoate-vilanterol [Breo Ellipta] 100-25 mcg/dose blister with device 1 ea INHALATION DAILY PreserVision AREDS 4,296 mcg-226 mg-90 mg capsule 1 cap PO DAILY citalopram 20 mg tablet 20 mg PO DAILY levothyroxine 50 mcg tablet 50 mcg PO DAILY Discharge Orders: Discharge Order (Routine); Ordered 02/29/24 Ordered By: Shana Lin Activity Level: Activity as Tolerated, Weight Bearing as Tolerated and Use Walker Activity Detail: Wound: ? Remove surgical dressings after 1 week; remove sooner if integrity is in question. ? No immersing wound in water; showering okay; light scrub with your hand and body soap, rinse, dab dry ? Sutures are under the skin, will dissolve; allow surgical glue to come off naturally; do not scrub the wound or apply ointments/lotions ? Call our office with any redness that streaks, excessive drainage from the wound, or wound gapping. Ice/Elevate: ? Ice as needed for swelling and discomfort; elevate extremity frequently above the heart. Motion/Exercise: ? Weight bear as tolerated operative extremity (walker for ambulation assistance) ? Per PT/OT. ? Straight leg raises daily: 1-2 sets of 10 reps Pain Medications: ? Oral narcotic as prescribed. Wean as tolerated. Additional acetaminophen and ibuprofen as needed. Blood Clot Prevention (DVT): ? Medication: 5 days of xarelto, followed by 25 days 81 mg aspirin by mouth twice daily (1 month total treatment) Driving: ? Do not drive while taking narcotic pain medication ? Anticipate 4-6 weeks no driving if operative leg is driving leg Dental: ? No elective dental work for 3 months post-op. If there is an urgent/emergent dental need, contact our office for an antibiotic prescription. Smoking/Alcohol: ? Do not smoke; do no drink alcohol especially when taking postoperative oral narcotic medication Seek Care from you Primary Care Provider if you experience the following issues in the postoperative phase and beyond: ? Bacterial infections such as: pneumonia, bacterial skin infection (cellulitis), UTI, high fever, chills unrelated to the operative body part - call your primary care physician urgently for treatment in hopes to protect your health and the metal implant. Referrals: ? PT, OT per patient preference - evaluate & treat (gait training, ROM, ADLs) Vaccines: ? No vaccines until 4-6 weeks postop Follow up: ? PA-C visit in 1 week or once discharged from SNF. ? Ortho surgeon follow-up in 6 weeks; repeat radiographs AP pelvis, cross table lateral operative hip If there are any acute concerns regarding your surgery, please call our orthopedic clinic ([phone]) After rehab stay, see Dr. Kendrick for regular followup appointment to check your BP and mobility. Discharge Diet: Regular Follow Up Appointments: Sharon Kendrick MD [Primary Care Provider] - Forms: [facility] Info Instructions Admit to: SNF Discharge Potential: Good Length of Stay: <30 days Can use facility standing orders?: Yes Code Status: Full Code TEDs: N/A Rehab Potential: Good Therapy: Physical Therapy and Occupational Therapy Therapy Orders: Evaluate and Treat, Gait Training and ADL Oxygen: No Urinary Catheter: No Glucose Checks: n/a Next INR: n/a Orders are good >30 days: Yes Signature: Shana Lin MD
[2024-02-29 14:16] VITALS: BP 169/70; PULSE 72; RESP 20; TEMP 36.2
--- NOTE | 2024-02-29 15:12 | PC.NURSE ---
shift note: vss stable. pt afeb. report given via phone to [facility] prior to pt dc. drsg to lt hip c/d/i. 2 active ice paks sent with pt at dc. IV dc'd intact. Belongings and copies of D.O sent with pt upon dc. Pt transported via private vehicle to skilled [facility] home.
== END 2024-02-29 12:50 | DRG 482 ==
LOC: ED 18:52 → MEDSURG 19:08
PROVIDERS: Family Medicine; Orthopaedic Surgery Sports Medicine; Admitting Provider Family Medicine; Emergency Provider Student in an Organized Health Care Education/Training Program; PCP Internal Medicine; Visit Provider Family Medicine
PROC: (CPT 27245; principal; 2024-02-27 15:15)
DX: S72.142A Displaced intertrochanteric fracture of left femur, initial encounter for closed fracture (principal); W01.0XXA Fall on same level from slipping, tripping and stumbling without subsequent striking against object, initial encounter; G89.18 Other acute postprocedural pain; R03.0 Elevated blood-pressure reading, without diagnosis of hypertension; R05.3 Chronic cough; F32.9 Major depressive disorder, single episode, unspecified; M85.80 Other specified disorders of bone density and structure, unspecified site; E03.9 Hypothyroidism, unspecified
CPT/HCPCS: 01230; 36415; 51798; 64450; 70450; 72125; 72192; 73502; 73552; 73700; 76000; 76942; 80048; 85025; 85027; 87426; 87635; 93005; 94761; 97110; 97116; 97162; 97165; 97530; 97535; 99100; 99140; 99285; A9270; C1713; J0131; J0690; J1100; J1171; J2250; J2270; J2405; J2470; J2704; J2795; J3010; J7120

== ENCOUNTER 2024-03-22 13:46 | Outpatient (CLI) | payer MEDICARE, OTHER, SELFPAY ==
--- NOTE | 2024-03-22 14:00 | CRLHL7_ITS ---
For Patients: As a result of the Century Cures Act, medical imaging exams and procedure reports are released immediately into your electronic medical record. You may view this report before your referring provider. If you have questions, please contact your health care provider. INDICATION: Leg pain and swelling. TECHNIQUE: Ultrasound venous duplex lower left extremity. Compression venous exam was performed using keith-scale, color Doppler, and spectral Doppler analysis. COMPARISON: None. FINDINGS: Deep veins: Sonographic imaging demonstrates the left common femoral, deep femoral, superficial femoral, popliteal, posterior tibial and the contralateral right common femoral veins to be fully compressible with normal color Doppler blood flow. Superficial veins: Greater saphenous vein is fully compressible. No popliteal cyst. IMPRESSION: Normal left lower extremity venous ultrasound, no sign of deep venous thrombosis. Dictated by Renato Cobb MD @ 03/22/2024 3:10:24 PM (Electronically Signed)
== END 2024-03-22 13:47 | disposition home or self-care (01) ==
PROVIDERS: PCP Internal Medicine; Visit Provider Physician Assistant Surgical
DX: M79.605 Pain in left leg (principal); M79.89 Other specified soft tissue disorders
CPT/HCPCS: 93971

== ENCOUNTER 2024-06-18 09:40 | Outpatient (CLI) | payer MEDICARE, OTHER, SELFPAY | END 2024-06-18 09:41 | disposition home or self-care (01) | LOC: NFLDREF 06-19 07:02 | PROVIDERS: PCP Internal Medicine; Referring Provider Internal Medicine; Visit Provider Internal Medicine | DX: E03.9 Hypothyroidism, unspecified (principal); M85.80 Other specified disorders of bone density and structure, unspecified site | CPT/HCPCS: 80048; 82306; 84443 ==

== ENCOUNTER 2024-06-26 09:04 | Outpatient (RCR) | payer MEDICARE, OTHER, SELFPAY ==
--- NOTE | 2024-06-26 11:17 | OT.OPGNE2 ---
OT Outpatient General/Neuro Eval OT Outpatient General/Neuro Eval* Start: 06/26/24 09:15 Freq: Status: Active Protocol: Document 06/26/24 09:15 [facility] (Rec: 06/26/24 10:15 CSS [id number]) E-signed By Naila Vidal, OTR/L OT Outpatient Evaluation Details Type Type Eval Complexity Low Insurance Information Insurance Information Insurance Information Medicare B Other Insurance [facility] Life Outpatient History/Precautions Current Condition Referring Provider Dr. Kendrick Medical Diagnoses R41.89- Other symptoms and signs involving cognitive functions and awareness Treatment Diagnoses Z91.89- Potential for cognitive impairment Medical/Functional History Medical History Reviewed Yes Prior Level of Function/Mobility Pt had prior L hip replacement surgery in February 2024 and currently receiving OP PT sessions. Indep with ADLs/IADLs at baseline; still indep. Social History Lives With: Spouse Employment Status Retired Patient Subjective Subjective Patient Subjective Pt would like a bench matt on cognition. She says family and herself are concerned with memory and executive functioning. Pt reports she thinks she had decline over last few years. 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 Pt notes concerns with doing taxes. Pt reports indep with driving, med management, manages finances, and meal prep. She lives with . Pt reports indep with ADLs with exception of donning socks; she reports assists. Pt reports that she has noticed difficulties with taxes and she reports she fears she is going to make a mistake. Pt notices that difficulty focusing on writing letters and sometimes forgets to write letters to her friends. Pt reports concerns with multitasking. Pt reports her dtr and grandchild both have commented they feels pt has ADHD. She does note that people will randomly honk at her when driving and she notices it is becoming more often. Pain Assessment Pain Pain No Cognitive Assessments Performed Oriented Patient oriented Person,Place,Time,Situation Cognitive Assessments Performed Other Assessment Results Med management task: Pt asked to set up on week of medications and provided with 4 medications. Pt set up /4 medications correctly. Check writing: Pt provided with written instructions to write out two fake checks. Pt to fill out amount, brittney line, and writing out the pay to order line. Pt able to complete both checks with 100% accuracy. Andrés Cognitive Assessment (MOCA) Results The MOCA COG ([place] Cognitive Assessment - Cognitive Screen) is a brief cognitive screening tool designed to help assess an individual's cognitive function. It's often used in clinical settings to detect cognitive impairments, such as those seen in conditions like dementia or Alzheimer's disease. The MOCA COG is a shortened version of the Andrés Cognitive Assessment (MoCA). The full MoCA test is a widely used tool to screen for cognitive dysfunction across various domains, including memory, attention, language, executive function, and visuospatial abilities. Scoring Interpretation 26?30: Normal cognitive function. 18?25: Mild cognitive impairment. 0?17: Significant cognitive impairment (suggestive of dementia or other severe cognitive disorder). Pt scored: Assessment Assessment Assessment Pt is 83 year old female who is referred to OT due to cognitive concerns. Pt today scores within normal range on MOCA, check writing activity, and med set up task. Pt notes concerns with multitasking and motivation to complete tasks, more so then ability to complete them. She also suggests that memory is affected when there are distractions. OT suggests possible ADHD or ADD and pt notes that she has children and grandchildren with this diagnosis. OT recommends eliminating distractions when completing tasks. OT suggests reaching out to provider for ADHD/ADD referrals and if that does not provide relief to her concerns, then a referral to OP OT for higher level cognitive testing. Pt is agreeable to this plan. No further OT warranted. Occupational Therapy Treatment Plan - OP Potential Rehabilitation Potential Good Goals Goals 1) Pt will verbalize understanding of cog testing and OT recommendation. - goal met. Treatment Plan Treatment Plan Evaluation Expected Frequency 1x Week Expected Duration 2-4 Weeks Certification Certification Statement I Certify That: Therapy Services Provided, Therapy Plan Established, Therapy Plan Reviewed Certification Information Clinic ID # [id number] Initial Certification Date 06/26/24 Recertification Due Date 06/27/24 Provider Signature Required Yes Provider Signature Shows Agreement With POC & Medical Necessity Physician NPI Number Write NPI# Here Physician Comment/Change Comment or Changes Physician Signature & Date Requested Please Sign/Date Here
== END 2024-10-24 23:59 | disposition home or self-care (01) ==
PROVIDERS: PCP Internal Medicine; Visit Provider Internal Medicine
DX: R41.89 Other symptoms and signs involving cognitive functions and awareness (principal); Z91.89 Other specified personal risk factors, not elsewhere classified; Z51.89 Encounter for other specified aftercare
CPT/HCPCS: 97165

== ENCOUNTER 2024-07-24 08:55 | Outpatient (CLI) | payer MEDICARE, OTHER, SELFPAY | END 2024-07-24 08:56 | disposition home or self-care (01) | LOC: NFLDREF 07-25 00:52 | PROVIDERS: PCP Internal Medicine; Referring Provider Internal Medicine; Visit Provider Internal Medicine | DX: I10 Essential (primary) hypertension (principal) | CPT/HCPCS: 80048 ==

== ENCOUNTER 2024-08-01 10:54 | Outpatient (RCR) | payer MEDICARE, OTHER, SELFPAY ==
[2024-08-01 11:37] VITALS: BP 122/73; PULSE 68; RESP 18; TEMP 36.3; O2SAT 96
[2024-08-01] MEDS: SODIUM CHLORIDE 0.9 % (FLUSH) 10 ML SYRINGE IVF (12:04)
== END 2025-01-28 23:59 | disposition home or self-care (01) ==
LOC: CCIC 10:54
PROVIDERS: PCP Internal Medicine; Referring Provider Internal Medicine; Visit Provider Clinical Nurse Specialist
DX: M81.0 Age-related osteoporosis without current pathological fracture (principal)
CPT/HCPCS: 96365; J3489; J7050

== ENCOUNTER 2024-09-19 13:51 | Outpatient (CLI) | payer MEDICARE, OTHER, SELFPAY ==
--- NOTE | 2024-09-19 14:00 | CRLHL7_ITS ---
For Patients: As a result of the Century Cures Act, medical imaging exams and procedure reports are released immediately into your electronic medical record. You may view this report before your referring provider. If you have questions, please contact your health care provider. DXA BONE MINERAL DENSITY STUDY Reason for exam: Unspecified fracture of shaft of left femur. Current height (in): 64. Weight (lb): 140. Menopause age: 56. Ethnicity: White. 1. Have you had a previous hip or vertebral fracture? Yes. 2. Have you had any fractures during your adult life which did not result from significant trauma (e.g., auto accident)? Yes. 3. Did either of your parents have a hip fracture? No. 4. Do you smoke? No. 5. Have you ever taken Glucocorticoids? No. 6. Do you have rheumatoid arthritis? No. 7. Do you have secondary osteoporosis? No. 8. Do you drink 3 or more alcoholic drinks per day? No. 9. Are you being treated for osteoporosis? Yes. 10. Have you ever taken any of the following medications: Actonel, Evista, Fosamax, Miacalcin, Reclast, Boniva, Forteo, HRT (i.e. estrogen/hormone therapy), Protelos, Prolia, Vitamin D, Calcium, other ??? please specify. ANSWER: Yes, Fosamax (i.e., alendronate), Reclast (i.e., zolendronate), vitamin D, HRT (i.e., estrogen/hormone therapy), and calcium. 11. Do you have any of the following medical conditions: Anorexia or bulimia, asthma or emphysema, end stage renal disease, hyperparathyroidism, any seizure disorders, cancer, inflammatory bowel diseases, hysterectomy, other ??? please specify. ANSWER: Yes, asthma or emphysema and cancer. 12. What was your maximum height (inches)? 64.75. 13. Do you perform weight bearing exercise regularly? No. 14. Do you regularly consume dairy products? Yes. 15. Do you drink caffeinated beverages? Yes. 16. At what age did your period start? 14. 17. Are you premenopausal? No. 18. How many full-term pregnancies have you had? 2. 19. Have you ever missed your period for more than 6 months in a row (not including or menopause)? No. TECHNIQUE: Bone mineral density study was performed using the [employer]. FINDINGS: The results of the study expressed as bone mineral density (BMD) are as follows: Lumbar spine L1 to L3: BMD: 0.966 g/cm2. T-score: -0.5. Z-score: 2.2. Neck Right: BMD: 0.705 g/cm2. T-score: -1.3. Z-score: 1.1. Total Right: BMD: 0.769 g/cm2. T-score: -1.4. Z-score: 0.8. Radius Left 33%: BMD: 0.516 g/cm2. T-score: -3.0. Z-score: 0.5. IMPRESSION: Osteoporosis. *Comparison exams done prior to 08/2019 were performed on different unit, [employer]. COMPARISON: Compared with scan of 10/22/2013, the bone mineral density has increased by 0.4 percent at the spine and increased by 2.2 percent at the hip. Arnie Nguyen M.D. Diagnostic Radiologist [email or web address] VON/antonia knight/Dictated by: Arnie Nguyen MD @ 09/20/2024 8:54:00 AM (Electronically Signed)
--- NOTE | 2024-09-19 14:40 | MM_ITS ---
Patient: ESTER KABA Facility:?[facility] Patient ID:?[id number] Site Patient ID:?[id number]. Site :?[id number] Study:?XRay-Breast 3D Hu SCREENING-09/19/2024 2:25:49 PM Ordering Physician:Herbie Herrera Final Report: INDICATION: BILATERAL SCREENING MAMMOGRAM, ASYMPTOMATIC 83 Y/O FEMALE COMPARISON: 08/08/2023, 05/11/2022, 03/03/2021 TECHNIQUE: Digital mammogram in CC and MLO projections including computer-aided detection (CAD) and tomosynthesis. BREAST COMPOSITION: The breasts are heterogeneously dense, which may obscure small masses. FINDINGS: No suspicious findings. ASSESSMENT: BI-RADS 1 Negative RECOMMENDATION: Annual screening mammogram. A lay language report of this examination will be provided to the patient. Dictated by: Arnie Nguyen MD @ 09/20/2024 10:47:45 Signed by:?Arnie Nguyen MD @09/20/2024 10:47:45 AM (Electronic Signature)
--- OUTSIDE RECORDS SUMMARY | 2024-09-20 00:26 | XMS_ITS | Clinical Summary ---
Author Organization [facility] Address [address] [place] [address] Care Team Providers Care Wire Stitcher Machine Name Role Phone Sharon Kendrick MD Primary Care Provider [phone] Erendira Everett AuD Unavailable Allergies No known active allergies Medications citalopram (CELEXA) 20 mg tablet Take 20 mg by mouth once daily. 08/02/2023 Active levothyroxine (SYNTHROID) 50 mcg tablet Take 50 mcg by mouth once daily. 08/02/2023 Active trimethoprim-samia ymyxin b (POLYTRIM) ophthalmic solution 06/21/2023 Active propranoloL (INDERAL) 10 mg tablet TAKE 1 TABLET BY MOUTH TWICE DAILY FOR ANXIETY 06/09/2023 Active fluticasone furoate-vilanter oL (Breo Ellipta) 100-25 mcg/dose inhalation powderIndication s:Asthma, unspecified asthma severity, unspecified whether complicated, unspecified whether persistent (HC) Inhale 1 Puff by mouth once daily. 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 Gender Identity Not on file Sexual Orientation [...] Care Team (Late st Contact Info) Description 11/14/2024 10:00 AM CDT Office Visit [facility] [address] [place] [id number] Radhames Orr MD [address] [place] [address] Health Maintenance Due Date Last Done Comments Tdap 1951 Depression screening for age 12+ 1953 Tetanus booster 1961 Pneumococcal series for age 50+ (1 of 1 - PCV) 10/18/1991 Zoster (shingles) series for age 50+ (1 of 2) 10/18/1991 DEXA/DXA scan for age 65+ 2006 Medicare Wellness for age 65+ 2006 RSV vaccine for adults or (1 - 1-dose 75+ series) 2016 COVID-19 vaccine series ( season) 2023 12/22/2022, 01/13/2021, 05/27/2020, Additional history exists BMI (ht and wt on same day) for age 18+ 10/13/2024 10/14/2023 Influenza Vaccine (Season Ended) 2024 Hepatitis B series for 19+ Aged Out N o longer eligible based on patient's age to complete this topic Insurance COMMERCIAL MEDICARE [place] ONLY Care Teams Wire Stitcher Machine Relationship Specialty Start Date End Date Sharon Kendrick MD [address] [place] [address] PCP - General Internal Medicine 04/25/12 Erendira Everett AuD [address] [place] [address] Audiology 04/25/12
== END 2024-09-19 13:52 | disposition home or self-care (01) ==
LOC: RAD 13:52
PROVIDERS: PCP Internal Medicine; Visit Provider Internal Medicine
DX: Z12.31 Encounter for screening mammogram for malignant neoplasm of breast (principal); R92.333 Mammographic heterogeneous density, bilateral breasts; S72.302A Unspecified fracture of shaft of left femur, initial encounter for closed fracture; M81.0 Age-related osteoporosis without current pathological fracture; M85.859 Other specified disorders of bone density and structure, unspecified thigh; Z78.0 Asymptomatic menopausal state
CPT/HCPCS: 77063; 77067; 77080